=== PATIENT | male | born 1955 | race Caucasian/White ===

== ENCOUNTER → 2020-03-21 15:50 | Outpatient (CLI) | payer OTHER, SELFPAY ==
[2020-03-21 23:29] LABS: SARS-CoV-2 RNA PCR Negative
== END ==
PROVIDERS: PCP Family Medicine; Visit Provider Internal Medicine Nephrology
DX: Z01.812 Encounter for preprocedural laboratory examination (principal); Z20.822 Contact with and (suspected) exposure to COVID-19
CPT/HCPCS: C9803; U0003

== ENCOUNTER 2020-03-24 08:51 | Outpatient (CLI) | payer OTHER, SELFPAY ==
[2020-03-21 14:26] VITALS: BMI 22.6
[2020-03-24] VITALS (10 sets, daily range): BP systolic 119–149; BP diastolic 71–101; PULSE 53–77; RESP 16–20; O2SAT 92–100
--- NOTE | ~2020-03-24 | US_ITS ---
EXAMINATION: US bx renal DATE: 03/24/2020 11:34 INDICATION: Hematuria. Kidney disease stage IV. TECHNIQUE: The procedure including the risks, benefits, and alternatives was discussed with the patie nt. Risks discussed included bleeding and infection. The patient understood the risks and agreed to p roceed. A timeout was performed to verify the patient's name, date of , and procedure to be p erformed. The skin overlying the left kidney was prepped and draped in usual sterile fashion. Anest hetic was administered with 1% lidocaine subcutaneously. An 18 gauge core biopsy needle was then use d to obtain 3 core biopsy specimens under continuous sonographic guidance. The entry site was cleaned and dressed. There were no immediate complications. FINDINGS: Ultrasound images demonstrate the needle in the kidney. IMPRESSION: 1. Ultrasound-guided random left kidney core needle biopsy. Reviewed, dictated and finalized at location A. RE PHOTOGRAPHER
[2020-03-24 10:24] LABS: Mean Platelet Volume 9.5 fl (7.4-10.4); Platelet Count Result 286 k/mm3 (150-375)
[2020-03-24 10:31] LABS: INR 0.9; Prothrombin Time 12.4 Seconds (11.1-14.7)
== END 2020-03-24 15:34 | disposition home or self-care (01) ==
PROVIDERS: Radiology Diagnostic Radiology; PCP Family Medicine; Visit Provider Internal Medicine Nephrology
DX: R31.9 Hematuria, unspecified (principal); N18.4 Chronic kidney disease, stage 4 (severe)
CPT/HCPCS: 36415; 50200; 85049; 85610; 88300; 88305; 88313; 88329; 88346; 88348; 88350

== ENCOUNTER 2020-04-24 14:58 | Outpatient (CLI) | payer OTHER, SELFPAY ==
--- NOTE | ~2020-04-24 | US_ITS ---
EXAMINATION: US right upper quadrant DATE: 04/24/2020 15:20 INDICATION: Right upper quadrant pain TECHNIQUE: Multiple grayscale and Doppler ultrasound images of the abdomen were obtained. COMPARISON: None available FINDINGS: The head and body of the pancreas are normal. The pancreatic tail is obscured by bowel gas. The liver is normal with normal echogenicity and echotexture. No surface nodularity. Normal hepatope sulma flow in the main portal vein. The gallbladder is normal with no abnormal wall thickening, pericho lecystic fluid or stones. The normal common bile duct measures 2 mm. There was no sonographic Garcia sign. IMPRESSION: 1. Normal sonographic study of the gallbladder. Reviewed, dictated and finalized at location A. [employer]
== END 2020-04-24 14:59 | disposition home or self-care (01) ==
PROVIDERS: PCP Family Medicine; Visit Provider Family Medicine
DX: R10.11 Right upper quadrant pain (principal)
CPT/HCPCS: 76705

== ENCOUNTER 2020-09-27 08:50 | Inpatient (IN) | payer OTHER, SELFPAY ==
[2020-09-27] VITALS (41 sets, daily range): BP systolic 139–189; BP diastolic 61–128; PULSE 62–89; RESP 14–28; TEMP 36.4–37; O2SAT 77–100; BMI 22.0
--- NOTE | ~2020-09-27 | US_ITS ---
EXAMINATION: US venous doppler [facility] DATE: 09/30/2020 13:12 INDICATION: Upper showed a swelling TECHNIQUE: Grayscale ultrasound images without and with compression and Doppler ultrasound images of the bilateral upper extremity veins were obtained. COMPARISON: None. FINDINGS: The right internal jugular vein, subclavian vein, axillary vein, brachial veins, basilic vein, cephal ic vein, radial vein, and ulnar vein are patent. A right upper extremity PICC is noted. The left internal jugular vein, subclavian vein, axillary vein, brachial veins, basilic vein, cephali c vein, radial vein, and ulnar vein are patent. IMPRESSION: 1. No evidence of deep venous thrombosis. Reviewed, dictated and finalized at location B.
--- NOTE | ~2020-09-27 | CT_ITS ---
EXAMINATION: CTA chest PE protocol EXAM DATE: 10/01/2020 18:14 INDICATION: Shortness of breath. Intermediate probability pulmonary embolism. Dialysis, receiving imm ediately after pulmonary scan. TECHNIQUE: Spiral CTA of the chest (pulmonary arteries) was performed with 100 cc Omnipaque 350 intr avenous contrast injection. Images were acquired during the pulmonary arterial phase. Coronal maxi mum intensity projection 3D-reconstructions were created by the technologist on dedicated workstation . Axial, coronal and sagittal reformatted images were reviewed. The dose-length product (DLP) for t his examination was 322.30 mGy-cm. The exposure was tailored according to patient size (auto mA exp osure control), and iterative reconstruction (ASIR) was used as additional dose reduction technique. There is no prior study for comparison. FINDINGS: Some right anterolateral neck subcutaneous gas, swelling from catheter placement. Catheter tip in expected position. Probably from the catheter placement. Pulmonary arteries are well opacified and without intraluminal filling defects. No thoracic aortic dissection. There is segmental right lower lobe, multi segmental left lower lobe atelectasis. Small bilateral pleural effusions, left gr eater than right. Small pericardial effusion. Tracheobronchial tree is patent. There is no mediast inal, hilar or axillary lymphadenopathy. There is no pneumothorax. Borderline cardiac enlargement . There is mild coronary arterial calcification, arterial sclerosis. Upper abdomen is unremarkable. There is moderate thoracic spondylosis without osteoblastic or osteolytic lesions identified. IMPRESSION: 1. Lower lobe atelectasis, multi segmental in the left and segmental in the right. 2. Small pleural effusions left greater than right. 3. Small pericardial effusion. Reviewed, dictated and finalized at location A. IMPRESSION: 1. Lower lobe atelectasis, multi segmental in the left and segmental in the ri ght. 2. Small pleural effusions left greater than right. 3. Small pericardial effusion.
--- NOTE | ~2020-09-27 | XR_ITS ---
EXAMINATION: XR chest PICC line INDICATION: PICC insertion TECHNIQUE: Portable AP chest at 1037 hours COMPARISON: 0931 hours FINDINGS: A right upper extremity PICC has been inserted which ends with its tip at the superior cavo atrial junction. The lungs are free of acute opacities. There is no pleural effusion or pneumothorax. The cardiomediastinal silhouette is normal. IMPRESSION: 1. Right upper extremity PICC ending at the superior cavoatrial junction. Reviewed, dictated and finalized at location A.
--- NOTE | ~2020-09-27 | NM_ITS ---
EXAMINATION: NM renal flow and function DATE: 09/30/2020 14:42 INDICATION: Acute renal injury TECHNIQUE: 7.3 mCi Tc-99m MAG3 was administered IV. The patient was scanned in the supine position. A posterior abdominal radionuclide angiogram was obtained. A subsequent time course of static images of the kidneys, ureters, and bladder was obtained. COMPARISON: CT abdomen and pelvis dated 09/27/2020 FINDINGS: The posterior abdominal radionuclide angiogram and sequential static images show normal position of t he kidneys with normal size and morphology of the right kidney. The left kidney appears small with a defect at the lower pole corresponding to the large renal cyst seen on the prior CT. Peak renal paren chymal activity was seen in the first minute of the angiographic phase images with the first passage of radiotracer with no additional radiotracer uptake and continually slowly decreasing renal activity curves throughout the remainder of the study. IMPRESSION: No evident renal uptake following the initial passage of activity through the kidneys consistent with severe bilateral nonspecific nephropathy. Reviewed, dictated and finalized at location A. IMPRESSION: No evident renal uptake following the initial passage of activity through the k idneys consistent with severe bilateral nonspecific nephropathy.
--- NOTE | ~2020-09-27 | CT_ITS ---
EXAMINATION: CT abdomen pelvis wo con DATE: 09/27/2020 11:26 INDICATION: Right flank pain TECHNIQUE: Computed tomography (CT) of the abdomen and pelvis was performed without intravenous contr ast. The dose-length product (DLP) was 162.34 mGy-cm. Automated exposure control and iterative recons truction technique were employed. COMPARISON: 02/02/2015 FINDINGS: There are small pleural effusions. Dependent atelectasis is noted in the visualized lung ba ses. The heart size is normal. The liver, spleen, pancreas, gallbladder, and adrenal glands are hernan l. There is a 5 cm cyst of the left kidney. The right kidney is unremarkable. No stones are identifie d in the kidneys, ureters, or bladder. There is no hydronephrosis or hydroureter. Calcified atheroscl erosis is noted. No pathologically enlarged abdominal or pelvic lymph nodes are identified. There is no free intraperitoneal gas or evidence of bowel obstruction. There is mild lumbar spondylosis. IMPRESSION: 1. No CT correlate for the patient's symptoms. Reviewed, dictated and finalized at location A.
--- NOTE | ~2020-09-27 | XR_ITS ---
EXAMINATION: XR fl guide central line place EXAM DATE: 10/01/2020 14:50 INDICATION: Insertion of tunneled dialysis catheter. TECHNIQUE: Fluoroscopy used during XR fl guide central line place performed by Dr. Kavin Weeks MD. Radiologist was not present for the imaging or procedure. Total fluoroscopic time of 102 second s. The DAP for this procedure was 0.3 mGym2. A total of 3 images sent to PACS from the exam. There is no prior study for comparison. FINDINGS: Frontal image demonstrates a right IJ approach double lumen dialysis catheter, tip project ing over expected location of the cavoatrial junction. There is also a right-sided PICC line. Correl ate with procedure note. IMPRESSION: Fluoroscopy used during right IJ dialysis catheter placement. Reviewed, dictated and finalized at location A.
--- NOTE | ~2020-09-27 | NM_ITS ---
EXAMINATION: NM pulmonary perfusion DATE: 09/29/2020 12:11 INDICATION: Shortness of breath. Elevated d-dimer. TECHNIQUE: 5.2 mCi Tc-99m MAA by intravenous route. Scintigraphic images of the chest were obtained. COMPARISON: Chest radiograph dated 09/28/2020 FINDINGS: Moderate sized perfusion defects in the anterior basilar segment of the left lower lobe and large per fusion defect in the posterior basilar segment of the left lower lobe. Small perfusion defect at the anterior segment of the right upper lobe. IMPRESSION: 1. Intermediate probability for pulmonary embolism. Reviewed, dictated and finalized at location A.
--- NOTE | ~2020-09-27 | XR_ITS ---
EXAMINATION: XR chest port-a-cath/central EXAM DATE: 10/01/2020 15:16 INDICATION: Postinsertion dialysis catheter. TECHNIQUE: Portable AP frontal chest x-ray was obtained. Comparison is made to prior examination from 09/29/2020. FINDINGS: There is a right-sided IJ double lumen dialysis catheter, tip projecting over cavoatrial ju nction. Also right-sided PICC line similar to position. The cardiomediastinal silhouette is prominent but magnified on this AP technique. Small amount of right perihilar airspace disease probably subseg mental atelectasis. No sizable pleural effusions. No pneumothorax. IMPRESSION: 1. Scattered right perihilar linear opacity likely subsegmental atelectasis. 2. No postprocedure pneumothorax. Reviewed, dictated and finalized at location A.
--- NOTE | ~2020-09-27 | US_ITS ---
EXAMINATION: US venous doppler [facility] DATE: 09/28/2020 08:52 INDICATION: Shortness of breath TECHNIQUE: [place] scale images without and with compression and Doppler images of the bilateral lower e xtremity veins were obtained. COMPARISON: None FINDINGS: The right common femoral vein, profunda femoral vein, femoral vein, popliteal vein, peroneal trunk, p osterior tibial veins, and greater saphenous vein are patent. The left common femoral vein, profunda femoral vein, femoral vein, popliteal vein, peroneal trunk, po sterior tibial veins, and greater saphenous vein are patent. IMPRESSION: 1. Patent bilateral lower extremity veins. No evidence of deep venous thrombosis. Reviewed, dictated and finalized at location A. IMPRESSION: 1. Patent bilateral lower extremity veins. No evidence of deep venous thrombosi s.
--- NOTE | ~2020-09-27 | XR_ITS ---
EXAMINATION: XR chest 2V DATE: 09/27/2020 09:34 INDICATION: Shortness of breath and cough TECHNIQUE: PA and lateral views of the chest are obtained. COMPARISON: None available FINDINGS: The lungs are free of acute opacities. There is no pleural effusion or pneumothorax. The ca rdiomediastinal silhouette is normal. There is moderate cervical and thoracic spondylosis. IMPRESSION: 1. No acute cardiopulmonary abnormality. Reviewed, dictated and finalized at location A.
--- NOTE | ~2020-09-27 | US_ITS ---
EXAMINATION: US renal BI DATE: 09/27/2020 14:32 INDICATION: Acute on chronic kidney injury TECHNIQUE: Multiple grayscale and Doppler ultrasound images of the kidneys were obtained. COMPARISON: CT from today FINDINGS: The right kidney measures 10.8 x 4.7 x 4.1 cm. The left kidney measures 11.7 x 5.1 x 5.7 cm . The kidneys demonstrate increased parenchymal echogenicity. There is a 4.5 cm cyst of the left kidn ey. There is no hydronephrosis. The bladder is normal. IMPRESSION: 1. Medical renal disease. Reviewed, dictated and finalized at location A. IMPRESSION: 1. Medical renal disease.
--- NOTE | ~2020-09-27 | XR_ITS ---
XR chest 2V DATE: 09/29/2020 12:17 INDICATION: Elevated d-dimer TECHNIQUE: PA and lateral views COMPARISON: 01/29/2021 portable AP chest FINDINGS: Right upper extremity PIC catheter tip overlies the superior vena cava. Minimal blunting of the costophrenic angles suggests small pleural effusions. There is mild infiltrate or atelectasis in the lower lung zones. Heart size is normal. There is aortic arch calcification. No hilar enlargement. IMPRESSION: Mild bilateral lower lung infiltrate or atelectasis Small pleural effusions may be present Right upper extremity PIC catheter Reviewed, dictated and finalized at location A.
--- NOTE | 2020-09-27 09:09 | ECG_ITS ---
Measurements Intervals [place] Rate: 72 P: 72 MI: 191 QRS: 81 QRSD: 86 T: 81 QT: 413 QTc: 455 Interpretive Statements SINUS RHYTHM LEFT VENTRICULAR HYPERTROPHY AND ST-T CHANGE BORDERLINE T WAVE ABNORMALITY- HIGH LATERAL LEADS BASELINE WANDER- I, II, III, AVL, AVF, V2-V6 BORDERLINE ECG Electronically Signed On 09-27-2020 12:00:49 CDT by Eddie Robertson D.O.
--- NOTE | 2020-09-27 09:52 | ED.GENADULT ---
HPI - General Adult General Chief complaint: Shortness of Breath/Dyspnea Stated complaint: SOB, N/V Time Seen by Provider: 09/27/20 08:56 Source: patient, RN notes reviewed and old records reviewed Mode of arrival: ambulatory Limitations: no limitations History of Present Illness HPI narrative: This is a 64 year old male who presents for evaluation of right flank pain. Patient states he has been dealing with right flank pain for over 1 year. He states he was here 1 year ago , and there was no etiology for his pain. His pain resolved but it returned a few weeks ago. HE states his pain has been constant and it is worsening. He is having such severe pain he is having difficulty taking a breath and he is short of breath due to his pain. He reports frequent urinary but he denies dysuria or hematuria. He has not taken anything for pain. He also has right lower back pain. He reports, nausea, vomiting and increased urinary frequency. He denies history DVT, PE , leg swelling or calf pain. Related Data Home Medications Medication Instructions Recorded Confirmed amlodipine 09/27/20 Allergies Allergy/AdvReac Type Severity Reaction Status Date / Time No Known Allergies Allergy Verified 09/27/20 08:55 Review of Systems Review of Systems: All systems reviewed & are unremarkable except as noted in HPI and below Constitutional: Constitutional: Denies chills and Denies fever(s) Cardiovascular: Cardiovascular: Denies chest pain Respiratory: Respiratory: Denies cough and Reports dyspnea Gastrointestinal: Gastrointestinal: Reports abdominal pain, Denies diarrhea, Reports nausea and Reports vomiting Genitourinary: Genitourinary: Denies hematuria, Denies dysuria and Reports urinary frequency (increase) Musculoskeletal: Musculoskeletal: Reports back pain [facility] Past Medical History Medical History CKD (chronic kidney disease) stage 4, GFR 15-29 ml/min Kidney failure 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 Restless leg syndrome Rheumatoid arthritis Tobacco abuse Surgical History Surgical History H/O right wrist surgery (~1979) History of carpal tunnel release (Unknown) Family History Family History Sibling Family history of mental disorder Father Cerebrovascular accident Other Family history of kidney disease Social History Social History Smoking status: Current every day smoker Tobacco type: cigarettes Second hand tobacco smoke exposure: No Smoking end date: 03/14/13 Alcohol intake: former Substance use: never Substance use type: does not use Gender identity (if verbalized by the patient): Male Spiritual care concerns: No Exam Const: General: alert Nutritional Appearance: thin Orientation/consciousness: patient oriented x3 Eyes: EOM: EOMs intact bilaterally Resp: Effort & Inspection: normal respiratory effort and no retractions Auscultation: clear to auscultation bilaterally Cardio: Rate: regular rate Rhythm: regular rhythm Heart sounds: no murmurs GI: GI Palp: Yes Soft to palpation, Yes Tenderness to palpation present (GI) (Right mid, RUQ), Yes Guarding due to palpation present (GI) and No Rigid due to palpation Auscultation: normal bowel sounds : General: Yes no CVA tenderness Skin: General skin exam: normal color Rashes: no rashes Neuro: General: patient oriented x3 and moves all extremities Course Reevaluation(s) Reevaluation #1: Patient reports with right flank pain that appears be due to his kidneys. 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 Labs show worsening kidney failure which is likely cause of his anemia. HE denies melena or bleeding, and he is guaic ne
[2020-09-27] MEDS: HYDROmorphone HCL INJ (*CRX) 1 MG/ML SYR IV PUSH (10:15)
[2020-09-27] MEDS: ONDANSETRON INJ 4 MG/2 ML VIAL IV PUSH ×2 (10:15→14:13)
--- NOTE | 2020-09-27 10:20 | PC.NURSE ---
Attempted IV access several times by several different nurses. US used per Greg for IV but infiltrated after IVP medication. Patient refusing anymore blood draws or IV sticks at this time. Dr. Hayden notified.
[2020-09-27 10:23] LABS: Basophils Percent Auto 0.6 % (0.2-1.2); Eosinophils Absolute Auto 1.1 K/mm3 (0-0.3); Eosinophils Percent Auto 16.4 % (0-4.4); Hematocrit 21.3 % (42.0-52.0); Immature Granulocyte Absolute 0.02 K/mm3 (0.00-0.031); Immature Granulocyte Percent A 0.3 % (0-0.5); Lymphocytes Absolute Auto 1.27 K/mm3 (0.9-3.2); Lymphocytes Percent Auto 18.6 % (18.3-44.2); Mean Corpuscular HGB Conc 31.9 g/dl (32-36); Mean Corpuscular Hemoglobin 29.2 pg (26-34); Mean Corpuscular Volume 91.4 fl (80-100); Mean Platelet Volume 9.6 fl (7.4-10.4); Monocytes Absolute Auto 0.5 K/mm3 (0.1-0.6); Monocytes Percent Auto 6.6 % (2.6-8.5); Neutrophils Absolute Auto 3.9 K/mm3 (1.3-6.7); Neutrophils Percent Auto 57.5 % (45.5-73.1); Platelet Count Result 210 k/mm3 (150-375); Red Blood Count 2.33 M/mm3 (4.6-6.20); Red Cell Distribution Width 13.2 % (11.5-14.5); White Blood Count 6.8 K/mm3 (4.5-10.0)
[2020-09-27 10:25] LABS: Hemoglobin 6.8 g/dL (14.0-18.0)
[2020-09-27 10:28] LABS: Add Urine Microscopic? YES; Appearance Urine Clear (Clear); Bacteria Urine Trace /hpf; Bilirubin Urine Negative (Negative); Blood Urine 3+ (Negative); Color Urine Yellow (Yellow); Glucose Urine UA 1+ mg/dL (Negative); Ketones Urine Negative (Negative); Leukocyte Esterase Ur Negative LEU/UL (Negative); Mucus Urine Rare /lpf; Nitrate Urine Negative (Negative); Protein Urine 3+ mg/dL (Negative); RBC Urine >75 /hpf (0-2); Squamous Epithelial Cell Urine Rare /hpf (Few); Urobilinogen Urine Negative mg/dL (<2.0)
[2020-09-27 10:36] LABS: Alanine Aminotransferase 10 U/L (4-50); Albumin Level 3.4 g/dL (3.5-5.1); Alkaline Phosphatase 71 U/L (38-126); Anion Gap 14 mmol/L (8-16); Aspartate Amino Transferase 17 U/L (17-59); Bilirubin,Total 0.3 mg/dL (0.2-1.3); Blood Urea Nitrogen 93 mg/dL (9-20); Calcium 6.9 mg/dL (8.4-10.2); Carbon Dioxide 18 mmol/L (22-30); Chloride 108 mmol/L (98-107); Estimated CRCL calculation 4 ml/min; Estimated Glomerular Filt Rate 3; Glucose 93 mg/dL (65-110); Lipase 95 U/L (23-300); Potassium 4.4 mmol/L (3.4-5.0); Sodium 140 mmol/L (137-145)
--- NOTE | 2020-09-27 11:04 | PC.NURSE ---
Iv from us insertion discontinued due to infiltration to r upper arm .
[2020-09-27 12:00] LABS: D Dimer 18.22 ug/mL (<0.48)
[2020-09-27 12:32] LABS: Iron 29 ug/dL (49-181)
[2020-09-27 12:39] LABS: INR 0.9; Partial Thromboplastin Time 49.6 SECONDS (22.3-36.8); Prothrombin Time 12.8 Seconds (11.1-14.7)
[2020-09-27 12:42] LABS: Percent Iron Saturation 9 % (20-50)
[2020-09-27 13:40] LABS: Folic Acid 7.5 ng/mL (2.76->20)
[2020-09-27] MEDS: PANTOPRAZOLE SODIUM IV 40 MG VIAL IV PUSH (14:13)
[2020-09-27] MEDS: TUBING, BLOOD SET 1 EACH XX (14:18)
[2020-09-27] MEDS: SODIUM CHLORIDE 0.9% IV 250 ML 30 ML IV CONT (14:19)
--- NOTE | 2020-09-27 14:34 | PC.NURSE ---
blood consent signed.
--- NOTE | 2020-09-27 14:53 | PM.CNNEP ---
Assessment and Plan Assessment and plan (1) MADDY (acute kidney injury): Code(s): N17.9 - Acute kidney failure, unspecified Status: Acute Assessment and Plan: acute insult or progression of disease? seems a bit rapid for disease progress but still is possible did his anemia cause this (of did MADDY worsen his anemia?) given his admission labs, concern is that he may need [employer]PER[employer]READ/dialysis if no improvement questionable uremic symptons... 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?) and likely HTN (3) Anemia: Code(s): D64.9 - Anemia, unspecified Status: Acute Assessment and Plan: no evidence of GI bleed (guaiac negative in ER) suspect related to worsening kidney disease (?) check iron studies empirically dose with Epogen follow trend of H/H (4) Hypertension: Qualifiers: Hypertension type: essential hypertension Qualified Code(s): I10 - Essential (primary) hypertension Code(s): I10 - Essential (primary) hypertension Status: Chronic Assessment and Plan: moderately elevated at this time follow trend of hemodynamics (5) Right upper quadrant pain: Code(s): R10.11 - Right upper quadrant pain Status: Chronic Assessment and Plan: chronic issue for the last year or so no explanation by imaging to date supportive therapy Long and extensive discussion (> 20 minutes) regarding his somewhat severe MADDY/ARF on his baseline CKD and my concern that he may require [employer]PER[employer] THREAD/dialysis should his kidney function fail to improve or worsen or if he has issues with hyperkalemia, refractory acidosis, volume overload, or uremia. Will continue to follow. History of Present Illness Reason for Consult Consult date: 09/27/20 Reason for consult: acute renal failure (on chronic kidney disease) Chief Complaint Chief complaint: acute chronic renal failure, anemia History of Present Illness Narrative: The patient is a 64-year-old male with a past medical history as outlined below who presented to [facility] Emergency room with complaints of abdominal pain. The patient has had on/off issues with right-sided abdominal pain for last 1-2 years without a clear-cut etiology he has had numerous imaging studies done in the past without any evidence of liver problems, gallbladder disease, bowel issues or appendicitis. However, the pain in his right abdomen was somewhat worse than usual and was severe enough that it brought him to the emergency room for further evaluation. Workup and evaluation in the emergency room demonstrated the patient to be quite hypertensive presumably secondary to pain issues but in otherwise no acute distress. He did have significant discomfort and pain in the right quadrant of his abdomen. Routine blood test demonstrated significant anemia in conjunction with a marked decline in his kidney function from baseline. A CT scan of the abdomen and pelvis did not demonstrate any intra-abdominal pathology to explain his pain or the aforementioned laboratory abnormalities. Given his severe anemia and his acute kidney injury on top of his baseline kidney disease, he was admitted the hospital for packed red blood cell transfusion and further evaluation and therapy. Renal consultation was requested due to his acute kidney injury on chronic kidney disease. The patient has fairly advanced kidney disease at baseline and follows with Dr. Palmer in clinic for management of this issue/problem. 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 Given his advanced chr
[2020-09-27 15:07] LABS: Creatinine Urine 56.7 mg/dL
[2020-09-27 15:08] LABS: Creatinine Urine 56.1 mg/dL
[2020-09-27 15:19] LABS: Sodium Urine Random 86 meq/L
[2020-09-27 15:21] LABS: Total Protein Urine Random 576 mg/dL; Ur Ttl Prot Creatinine Ratio 10.16 mg/mg (0-0.20)
[2020-09-27] MEDS: CALCIUM GLUCONATE 1,000 MG/10 ML VIAL 1000 MG IV PUSH (15:55)
[2020-09-27 15:59] LABS: Eosinophil Urine 6 % (None Seen)
[2020-09-27] MEDS: SODIUM CHLORIDE 0.9% IV 1,000 ML 125 ML IV CONT (18:30)
--- NOTE | 2020-09-27 18:49 | PM.IMHP ---
H&P: HPI History of Present Illness Date/Time: 09/27/20 18:49Thidamir is a 64-year-old male patient who presented today with complaints of right flank pain. The patient has had this flank pain for over 1 year. He has a history of having RA as well as lupus. 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 The patient stated he was going to go for an colonoscopy approximately [address] Christine however the patient was not able to complete the test because he was vomiting. Patient was not sure of any recent GI bleed. The patient complains of this right upper quadrant pain that he states is getting worse. He does not take any pain medications at home. Coughing and moving and taking deep breaths makes the pain worse. CT of the abdomen pelvis was read as no CT correlate for the patient's symptoms. Renal ultrasound from today shows medical renal disease. H&H 6.8 and 21.3 platelets are normal. The patient has blood in his stool which is of chronic constant condition. Protein creatinine ratio is 10.16. Nephrology has been consulted and has already seen the patient. BUN is 93 and creatinine is 14.8 with a GFR of 3. D-dimer is listed as 18.22. Hemoglobin today was 6.8. We were unable to do a V/Q scan today and or not able to do a CT scan pulmonary artery due to his kidneys. Patient was started on Protonix IV push, Dilaudid, Zofran, and calcium gluconate. The patient was given 2 units of packed red blood cells. The patient is being admitted to inpatient services on the date of service of 09/27/2020. Chief Complaint: Right upper quadrant pain Review of Systems Review of Systems: All systems reviewed & are unremarkable except as noted in HPI and below Constitutional: Constitutional: Reports as per HPI and Reports no additional constitutional complaints Eyes: Eyes: Reports as per HPI and Reports no additional eye complaints ENT: Reports system reviewed and no additional complaints, except as documented and Reports Normal hearing present Cardiovascular: Cardiovascular: Reports no additional cardiovascular complaints Respiratory: Respiratory: Reports no additional respiratory complaints and Reports no additional respiratory complaints Gastrointestinal: Gastrointestinal: Reports as per HPI and Reports no additional gastrointestinal complaints Musculoskeletal: Musculoskeletal: Reports no additional musculoskeletal complaints Integumentary/Breasts: Skin/Breast: Reports system reviewed and no additional complaints, except as docu and Reports as per HPI Neurologic: Reports system reviewed and no additional complaints, except as documented, Reports as per HPI and Reports Normal hearing present Psychiatric: Psychiatric: Reports no additional psychiatric complaints and Reports as per HPI Endocrine: Endocrine: Reports no additional endocrine complaints Hematologic/Lymphatic: Hematologic/Lymphatic: Reports no additional hematologic/lymphatic complaints Allergic/Immunologic: Allergic/Immunologic: Reports no additional allergic/immunologic complaints [facility] Past Medical History Medical History (Updated 09/27/20 @ 19:22 by Lavern Hodges NP) CKD (chronic kidney disease) stage 4, GFR 15-29 ml/min Hypertension Kidney failure Lupus Restless leg syndrome Rheumatoid arthritis Tobacco abuse Surgical History Surgical History (Updated 09/27/20 @ 19:23 by Lavern Hodges NP) H/O right wrist surgery (~1979) History of carpal tunnel release (Unknown) History of facial surgery Hx of cataract extraction Family History Family History (Updated 09/27/20 @ 18:36 by Dominique Palacios RN) Sibling Family history of mental disorder spinal meningitis, brain injury Father Cerebrovascular accident Other Family history of kidney disease Social History Social History (Updated 09/27
[2020-09-27] MEDS: MORPHINE SULFATE (*CRX) 4 MG/ML INJ IV PUSH (18:55)
[2020-09-27] MEDS: HYDROcodone/acetaminophen (*CRX) 5-325 MG TABLET 1 TAB PO (20:32)
--- NOTE | 2020-09-28 00:47 | PC.NURSE ---
Pt continues to refuse labs to be drawn. Spoke with Jacquie Olivier Nursing car supervisor she was going to try and draw his labs and he refused. He said, I've been poked so much and cant handle it right now. I explained to him why it is important to draw his labs and he voiced understanding and continues to refuse for us to draw his labs.
[2020-09-28] MEDS: SODIUM CHLORIDE 0.9% IV 1,000 ML 125 ML IV CONT (02:47)
[2020-09-28] MEDS: HYDROcodone/acetaminophen (*CRX) 5-325 MG TABLET 1 TAB PO ×3 (04:08→23:16)
[2020-09-28 06:00] VITALS: BP 158/86; PULSE 68; RESP 16; TEMP 36.3; O2SAT 97
--- NOTE | 2020-09-28 07:49 | PM.IMPN ---
Progress Note: A&P Assessment and Plan (1) Anemia: Code(s): D64.9 - Anemia, unspecified Status: Acute Assessment and Plan: Check H&H every 6 hours. Gastroenterology service has been consulted. He was supposed to have colonoscopy as an outpatient but could not continue his breath is he felt nauseated. Will check stool for occult blood. Anemia workup has been sent. Iron level is low which is 29. TIBC is 320. Hematology service has been consulted as well. Hemoglobin today is 7.4 which is up from 6.8 yesterday after 1 unit of PRBC. (2) Elevated d-dimer: Code(s): R79.89 - Other specified abnormal findings of blood chemistry Status: Acute Assessment and Plan: Not able to do a CTA chest due to patient's renal disease. V/Q scan has been ordered. Doppler ultrasound has been found to be negative for DVT. Low- suspicions for thromboembolic disease. (3) Hypertension: Qualifiers: Hypertension type: essential hypertension Qualified Code(s): I10 - Essential (primary) hypertension Code(s): I10 - Essential (primary) hypertension Status: Chronic Assessment and Plan: Continue with home medications With amlodipine. (4) Lupus: Code(s): M32.9 - Systemic lupus erythematosus, unspecified Status: Chronic Assessment and Plan: He was supposed to see rheumatology as an outpatient. (5) Right upper quadrant pain: Code(s): R10.11 - Right upper quadrant pain Status: Acute Assessment and Plan: Patient has had a workup in the past. He had a CT scan without contrast today and there was no CT correlation for the patient's symptoms. I did order the patient Vicodin as well as Flexeril. The patient has discomfort with movement or deep breath. V/Q scan is pending. deescalate pain medication from IV to p.o.. (6) Tobacco abuse: Code(s): Z72.0 - Tobacco use Status: Acute Assessment and Plan: patient stated that he is starting to cut down his cigarettes every day and is down to just a couple cigarettes a day. We have discussed smoking cessation for approximately 5 minutes. (7) CKD (chronic kidney disease) stage 4, GFR 15-29 ml/min: Code(s): N18.4 - Chronic kidney disease, stage 4 (severe) Status: Acute Assessment and Plan: The patient has been in stage IV however his GFR is only 3 today. Patient does have kidney disease and nephrology is seeing the patient As an outpatient. 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 His creatinine is 14.8. Stop IV fluids. Creatinine is 12.8 today. BUN is 91 which is improved from yesterday. Is mildly acidotic with bicarb of 15 but also having hyperchloremia. Calcium is 6.8. Potassium is 5.3. Will give Kayexalate. Repeat labs in the a.m.. Subjective Date/time seen: 09/28/20 07:49 He is feeling better. Denied have any significant weakness and tiredness. Denied have any chest pain or shortness of breath. He denied have any melena or bright red blood per rectum. Denied have any bleeding from anywhere else. He has received 1 unit of PRBC yesterday. Labs could not be obtained. He has a difficult stick and does not have reliable IV access as well. Midline will be placed today. Still complaining of right upper quadrant pain but that gets worse only when he moves his upper torso the body. Review of Systems Review of Systems: All systems reviewed & are unremarkable except as noted in HPI and below Exam Const: General: cooperative, comfortable, no acute distress, alert and awake Neck: Neck: supple Resp: Effort & Inspection: normal respiratory effort Auscultation: clear to auscultation bilaterally Cardio: Rate: regular rate Rhythm: regular rhythm Heart sounds: S1 normal heart sound present and S2 normal heart sound present Neuro: General: oriented to person, or
[2020-09-28 08:34] LABS: Alanine Aminotransferase 8 U/L (4-50); Alkaline Phosphatase 49 U/L (38-126); Anion Gap 13 mmol/L (8-16); Aspartate Amino Transferase 16 U/L (17-59); Bilirubin,Total 0.5 mg/dL (0.2-1.3); Blood Urea Nitrogen 91 mg/dL (9-20); Calcium 6.8 mg/dL (8.4-10.2); Carbon Dioxide 15 mmol/L (22-30); Chloride 112 mmol/L (98-107); Estimated CRCL calculation 5 ml/min; Estimated Glomerular Filt Rate 4; Glucose 76 mg/dL (65-110); Magnesium 1.7 mg/dL (1.6-2.3); Potassium 5.3 mmol/L (3.4-5.0); Sodium 140 mmol/L (137-145)
[2020-09-28 09:10] LABS: Lactate Dehydrogenase 946 U/L (313-618); Transferrin 201 mg/dL (206-381)
[2020-09-28] MEDS: ONDANSETRON INJ 4 MG/2 ML VIAL IV PUSH (11:12)
[2020-09-28 12:01] LABS: Basophils Percent Auto 0.7 % (0.2-1.2); Eosinophils Absolute Auto 0.9 K/mm3 (0-0.3); Eosinophils Percent Auto 15.5 % (0-4.4); Hematocrit 22.3 % (42.0-52.0); Hemoglobin 7.4 g/dL (14.0-18.0); Immature Granulocyte Absolute 0.02 K/mm3 (0.00-0.031); Immature Granulocyte Percent A 0.3 % (0-0.5); Immature Reticulocyte Fraction 8.2 % (3.0-15.9); Lymphocytes Absolute Auto 1.36 K/mm3 (0.9-3.2); Lymphocytes Percent Auto 23.4 % (18.3-44.2); Mean Corpuscular HGB Conc 33.2 g/dl (32-36); Mean Corpuscular Hemoglobin 30.3 pg (26-34); Mean Corpuscular Volume 91.4 fl (80-100); Mean Platelet Volume 9.5 fl (7.4-10.4); Monocytes Absolute Auto 0.4 K/mm3 (0.1-0.6); Monocytes Percent Auto 6.2 % (2.6-8.5); Neutrophils Absolute Auto 3.1 K/mm3 (1.3-6.7); Neutrophils Percent Auto 53.9 % (45.5-73.1); Platelet Count Result 182 k/mm3 (150-375); Red Blood Count 2.44 M/mm3 (4.6-6.20); Red Cell Distribution Width 13.2 % (11.5-14.5); Reticulocyte Hemoglobin Conten 35.1 pg (28.2-35.7); Reticulocyte Percent 1.22 % (0.7-4.3); Reticulocytes Absolute 0.03 B/L (32.2-175.7); White Blood Count 5.8 K/mm3 (4.5-10.0)
[2020-09-28 12:11] LABS: Lactic Acid Reflex < 0.5 mmol/L (0.7-2.1)
[2020-09-28 12:42] LABS: Iron 56 ug/dL (49-181)
[2020-09-28 12:51] LABS: Percent Iron Saturation 25 % (20-50)
[2020-09-28 14:00] VITALS: BP 167/86; PULSE 65; RESP 16; TEMP 36.4; O2SAT 98
--- NOTE | 2020-09-28 14:06 | P.PNNP_ITS ---
Progress Note: A&P Assessment and Plan (1) MADDY (acute kidney injury): Code(s): N17.9 - Acute kidney failure, unspecified Status: Acute Assessment and Plan: * acute insult or progression of disease? 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 * trial of bicarb fluids today (2) Chronic kidney disease, stage IV (severe): Code(s): N18.4 - Chronic kidney disease, stage 4 (severe) Status: Chronic Assessment and Plan: * baseline creatinine around 3.2 - 3.6mg/dl * due to biopsy proven sclerosing glomerulopathy (from lupus nephritis?) and likely HTN (3) Anemia: Code(s): D64.9 - Anemia, unspecified Status: Acute Assessment and Plan: * no evidence of GI bleed (guaiac negative in ER) * suspect related to worsening kidney disease (?) * iron studies with adequate iron stores * empirically dose with Epogen * follow trend of H/H (4) Hypertension: Qualifiers: Hypertension type: essential hypertension Qualified Code(s): I10 - Essential (primary) hypertension Code(s): I10 - Essential (primary) hypertension Status: Chronic Assessment and Plan: * moderately elevated at this time * pain possibly playing a role? * follow trend of hemodynamics (5) Right upper quadrant pain: Code(s): R10.11 - Right upper quadrant pain Status: Chronic Assessment and Plan: * chronic issue for the last year or so * no explanation by imaging to date * supportive therapy Will continue to follow. Subjective Date/time seen: 09/28/20 14:06 States he feels okay but still has the right sided abdomen pain that originally brought him to the ER; no other acute issues or complaints voiced; no events overnight or earlier this AM. Exam Narrative: Exam Narrative: General: WD/WN male in NAD Heart: normal S1 and S2; no rub Lungs: clear to auscultation Abdomen: soft, nontender, nondistended, positive bowel sounds Extremities: no cyanosis or clubbing; no edema Skin: warm and dry Objective Data Vital Signs Vital Signs: Vital Signs Temp Pulse Resp BP Pulse Ox 09/28/20 14:00 36.4 C L 65 16 167/86 H 98 09/28/20 06:00 36.3 C L 68 16 158/86 H 97 09/27/20 22:00 36.5 C 74 18 162/69 H 98 Intake/Output Intake/Output: Intake & Output 09/25/20 09/26/20 09/27/20 09/28/20 23:59 23:59 23:59 23:59 Intake Total 599 2370 Balance 599 2370 Meds/Results Medications: Active Medications Generic Name Dose Route Start Last Admin Trade Name Freq PRN Reason Stop Dose Admin Hydrocodone Bitart/Acetaminophen 1 tab 09/28/20 08:37 09/28/20 16:39 Hydrocodone/Acetaminophen (*Crx) 5-325 Mg Tablet PO 1 tab Q6H PRN Administration Pain Rated 4-6 Amlodipine Besylate 10 mg 09/29/20 09:00 Amlodipine Besylate 5 Mg Tablet PO DAILY CANDIDA Cyclobenzaprine HCl 5 mg 09/27/20 18:40 Cyclobenzaprine Hcl 5 Mg Tablet PO Q8H PRN Muscle Spasm Sodi
--- NOTE | 2020-09-28 14:06 | PM.PNNEP ---
Progress Note: A&P Assessment and Plan (1) MADDY (acute kidney injury): Code(s): N17.9 - Acute kidney failure, unspecified Status: Acute Assessment and Plan: acute insult or progression of disease? 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 follow trend of hemodynamics (5) Right upper quadrant pain: Code(s): R10.11 - Right upper quadrant pain Status: Chronic Assessment and Plan: chronic issue for the last year or so no explanation by imaging to date supportive therapy Will continue to follow. Subjective Date/time seen: 09/28/20 14:06 States he feels okay but still has the right sided abdomen pain that originally brought him to the ER; no other acute issues or complaints voiced; no events overnight or earlier this AM. Exam Narrative: Exam Narrative: General: WD/WN male in NAD Heart: normal S1 and S2; no rub Lungs: clear to auscultation Abdomen: soft, nontender, nondistended, positive bowel sounds Extremities: no cyanosis or clubbing; no edema Skin: warm and dry Objective Data Vital Signs Vital Signs: Vital Signs Temp Pulse Resp BP Pulse Ox 09/28/20 14:00 36.4 C L 65 16 167/86 H 98 09/28/20 06:00 36.3 C L 68 16 158/86 H 97 09/27/20 22:00 36.5 C 74 18 162/69 H 98 Intake/Output Intake/Output: Intake & Output 09/25/20 09/26/20 09/27/20 09/28/20 23:59 23:59 23:59 23:59 Intake Total 599 2370 Balance 599 2370 Meds/Results Medications: Active Medications Generic Name Dose Route Start Last Admin Trade Name Freq PRN Reason Stop Dose Admin Hydrocodone Bitart/Acetaminophen 1 tab 09/28/20 08:37 09/28/20 16:39 Hydrocodone/Acetaminophen (*Crx) 5-325 Mg Tablet PO 1 tab Q6H PRN Administration Pain Rated 4-6 Amlodipine Besylate 10 mg 09/29/20 09:00 Amlodipine Besylate 5 Mg Tablet PO DAILY CANDIDA Cyclobenzaprine HCl 5 mg 09/27/20 18:40 Cyclobenzaprine Hcl 5 Mg Tablet PO Q8H PRN Muscle Spasm Sodium Bicarbonate 75 meq/ 1,075 mls @ 50 mls/hr 09/28/20 15:40 09/28/20 16:40 Sodium Chloride IV CONT 09/29/20 11:39 50 mls/hr .[id number] CANDIDA Administration Morphine Sulfate 2 mg 09/28/20 08:38 Morphine Sulfate (*Crx) 4 Mg/Ml Inj IV PUSH Q4H PRN Pain Rated 7-10 Ondansetron HCl 4 mg 09/27/20 13:42 09/28/20 11:12 Ondansetron Inj 4 Mg/2 Ml Vial IV PUSH 4 mg Q4H PRN Administration Nausea Radiology Results: ITS Impressions Abdomen/Pelvis CT 09/27/20 12:45 IMPRESSION: 1. No CT correlate for the patient's symptoms. Renal Ultrasound 09/27/20 15:19 IMPRESSION: 1. Medical renal disease. Venous Doppler Study 09/28/20 09:47 IMPRESSION: 1. Patent
[2020-09-28] MEDS: SODIUM POLYSTYRENE SULFONONATE 15 GM/60 ML BTL PO (14:51)
[2020-09-28] MEDS: SODIUM BICARBONATE 8.4% 75 MEQ in SODIUM CHLORIDE 0.45% 1,000 ML 50 MEQ IV CONT (16:40)
[2020-09-28] MEDS: CYCLOBENZAPRINE HCL 5 MG TABLET PO (21:40)
[2020-09-28 22:00] VITALS: BP 165/76; PULSE 73; RESP 16; TEMP 36.6; O2SAT 97
[2020-09-29 05:56] LABS: Basophils Percent Auto 0.5 % (0.2-1.2); Eosinophils Absolute Auto 0.8 K/mm3 (0-0.3); Immature Granulocyte Absolute 0.01 K/mm3 (0.00-0.031); Immature Granulocyte Percent A 0.2 % (0-0.5); Lymphocytes Absolute Auto 1.71 K/mm3 (0.9-3.2); Lymphocytes Percent Auto 28.5 % (18.3-44.2); Mean Corpuscular HGB Conc 33.3 g/dl (32-36); Mean Corpuscular Hemoglobin 29.9 pg (26-34); Mean Corpuscular Volume 89.7 fl (80-100); Mean Platelet Volume 9.3 fl (7.4-10.4); Monocytes Absolute Auto 0.4 K/mm3 (0.1-0.6); Monocytes Percent Auto 6.5 % (2.6-8.5); Neutrophils Percent Auto 50.3 % (45.5-73.1); Platelet Count Result 183 k/mm3 (150-375); Red Blood Count 2.34 M/mm3 (4.6-6.20); Red Cell Distribution Width 13.2 % (11.5-14.5)
[2020-09-29 06:00] VITALS: BP 169/89; PULSE 64; RESP 16; TEMP 36.6; O2SAT 98
[2020-09-29 06:08] LABS: Albumin Level 2.8 g/dL (3.5-5.1); Anion Gap 11 mmol/L (8-16); Blood Urea Nitrogen 87 mg/dL (9-20); Calcium 6.6 mg/dL (8.4-10.2); Carbon Dioxide 21 mmol/L (22-30); Chloride 108 mmol/L (98-107); Estimated CRCL calculation 5 ml/min; Estimated Glomerular Filt Rate 4; Glucose 79 mg/dL (65-110); Magnesium 1.7 mg/dL (1.6-2.3); Phosphorus 11.3 mg/dL (2.5-4.5); Potassium 4.5 mmol/L (3.4-5.0); Sodium 140 mmol/L (137-145)
--- NOTE | 2020-09-29 08:25 | P.PNNP_ITS ---
Progress Note: A&P Assessment and Plan (1) MADDY (acute kidney injury): Code(s): N17.9 - Acute kidney failure, unspecified Status: Acute Assessment and Plan: * acute insult or progression of disease? * the huge change in creatinine from a level of around 4 to current number makes it seem like an acute change. * Certainly dehydration may be playing a role. * He recently had a renal biopsy showing significant amount of scar tissue but no active lupus. * The blood in the urine is chronic however he did not have this much protein. 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 * Iron okay. (4) Hypertension: Qualifiers: Hypertension type: essential hypertension Qualified Code(s): I10 - Essential (primary) hypertension Code(s): I10 - Essential (primary) hypertension Status: Chronic Assessment and Plan: * moderately elevated at this time * pain possibly playing a role? * follow trend of hemodynamics (5) Right upper quadrant pain: Code(s): R10.11 - Right upper quadrant pain Status: Chronic Assessment and Plan: * chronic issue for the last year or so * CT negative. * Liver enzymes okay. * no explanation by imaging to date * supportive therapy Will continue to follow. Subjective Date/time seen: 09/29/20 08:25 Interval history: Tae is feeling about the same. He still has his right flank pain. No nausea or vomiting. Exam Narrative: Exam Narrative: General: WD/WN male in NAD Heart: normal S1 and S2; no rub Lungs: clear to auscultation Abdomen: soft, nontender, nondistended, positive bowel sounds He has some pain in the anterior axillary line just under the ribs. It is somewhat variable in location and sometimes is more anterior depending on where I prod. Extremities: no cyanosis or clubbing; no edema Skin: No rash Objective Data Vital Signs Vital Signs: Vital Signs - 24 hr 09/28/20 14:00 09/28/20 22:00 09/29/20 06:00 Temperature 36.4 C L 36.6 C 36.6 C Pulse Rate 65 73 64 Respiratory Rate 16 16 16 Blood Pressure 167/86 H 165/76 H 169/89 H Pulse Oximetry 98 97 98 Intake/Output Intake/Output: Intake & Output 09/26/20 09/27/20 09/28/20 09/29/20 23:59 23:59 23:59 23:59 Intake Total 599 2950 Output Total 1220 1000 Balance 599 1730 -1000 Meds/Results Medications: Active Medications Generic Name Dose Route Start Last Admin Trade Name Freq PRN Reason Stop Dose Admin Hydrocodone Bitart/Acetaminophen 1 tab 09/28/20 08:37 09/28/20 23:16 Hydrocodone/Acetaminophen (*Crx) 5-325 Mg Tablet PO 1 tab Q6H PRN Administration Pain Rated 4-6 Amlodipine Besylate 10 mg 09/29/20 09:00 Amlodipine Besylate 5 Mg Tablet PO DAILY CANDIDA Cyclobenzaprine HCl 5 m
--- NOTE | 2020-09-29 08:25 | PM.PNNEP ---
Progress Note: A&P Assessment and Plan (1) MADDY (acute kidney injury): Code(s): N17.9 - Acute kidney failure, unspecified Status: Acute Assessment and Plan: acute insult or progression of disease? the huge change in creatinine from a level of around 4 to current number makes it seem like an acute change. Certainly dehydration may be playing a role. He recently had a renal biopsy showing significant amount of scar tissue but no active lupus. The blood in the urine is chronic however he did not have this much protein. 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 Iron okay. (4) Hypertension: Qualifiers: Hypertension type: essential hypertension Qualified Code(s): I10 - Essential (primary) hypertension Code(s): I10 - Essential (primary) hypertension Status: Chronic Assessment and Plan: moderately elevated at this time pain possibly playing a role? follow trend of hemodynamics (5) Right upper quadrant pain: Code(s): R10.11 - Right upper quadrant pain Status: Chronic Assessment and Plan: chronic issue for the last year or so CT negative. Liver enzymes okay. no explanation by imaging to date supportive therapy Will continue to follow. Subjective Date/time seen: 09/29/20 08:25 Interval history: Tae is feeling about the same. He still has his right flank pain. No nausea or vomiting. Exam Narrative: Exam Narrative: General: WD/WN male in NAD Heart: normal S1 and S2; no rub Lungs: clear to auscultation Abdomen: soft, nontender, nondistended, positive bowel sounds He has some pain in the anterior axillary line just under the ribs. It is somewhat variable in location and sometimes is more anterior depending on where I prod. Extremities: no cyanosis or clubbing; no edema Skin: No rash Objective Data Vital Signs Vital Signs: Vital Signs - 24 hr 09/28/20 14:00 09/28/20 22:00 09/29/20 06:00 Temperature 36.4 C L 36.6 C 36.6 C Pulse Rate 65 73 64 Respiratory Rate 16 16 16 Blood Pressure 167/86 H 165/76 H 169/89 H Pulse Oximetry 98 97 98 Intake/Output Intake/Output: Intake & Output 09/26/20 09/27/20 09/28/20 09/29/20 23:59 23:59 23:59 23:59 Intake Total 599 2950 Output Total 1220 1000 Balance 599 1730 -1000 Meds/Results Medications: Active Medications Generic Name Dose Route Start Last Admin Trade Name Freq PRN Reason Stop Dose Admin Hydrocodone Bitart/Acetaminophen 1 tab 09/28/20 08:37 09/28/20 23:16 Hydrocodone/Acetaminophen (*Crx) 5-325 Mg Tablet PO 1 tab Q6H PRN Administration Pain Rated 4-6 Amlodipine Besylate 10 mg 09/29/20 09:00 Amlodipine Besylate 5 Mg Tablet PO DAILY CANDIDA Cyclobenzaprine HCl 5 mg 09/27/20 18:40 09/28/20 21:40 Cyclobenzaprine Hcl 5 Mg Tablet PO 5 mg Q8H PRN Administration Muscle Spasm Epoetin Andreas-epbx 10,000 units 09/29/20 09:00 Epoetin Andreas-Epbx 10,000 Units/Ml Vial SUB-Q MOWEFR CANDIDA Sodium Bicarbonate 75 meq/ 1,075 mls @ 50 mls/hr 09/28/20 15:40 09/28/20 16:40 Sodium Chloride IV CONT 09/29/20 11:39 50 mls/hr .[id number] CANDIDA Administration Morphine Sulfate 2 mg 09/28/20 08:38 Morphine Sulfate (*Crx) 4 Mg/Ml Inj IV PUSH Q4H PRN Pain Rated 7-10 Ondansetron HCl 4 mg 09/27/20 13:42 09/28/20 11:12 Ondansetron Inj 4 Mg/2 Ml Vial IV PUSH 4 mg Q4H PRN Administration Nausea Sodium Chloride 10 ml 09/29/20 14:0
[2020-09-29 09:39] LABS: Glucose Point of Care 107 mg/dl (65-105)
[2020-09-29] MEDS: EPOETIN ALFA-EPBX 10,000 UNITS/ML VIAL 10000 UNITS SUB-Q (10:11)
[2020-09-29] MEDS: amLODIPine BESYLATE 5 MG TABLET 10 MG PO (10:13)
[2020-09-29 10:18] LABS: Erythrocyte Sedimentation Rate > 140 mm/hr (0-20)
[2020-09-29 10:57] LABS: Hemoglobin A1C 5.3 % (<5.7)
[2020-09-29 11:34] VITALS: BMI 22.0
[2020-09-29 11:34] LABS: Hepatitis B Surface Antigen Negative (Negative)
[2020-09-29 11:39] LABS: HAV RESULT Negative (Negative); Hepatitis B Core IgM Result Negative (Negative)
[2020-09-29 11:51] LABS: Hepatitis B Surface Anti Res Negative; Hepatitis C Virus Antibody Negative (Negative)
--- NOTE | 2020-09-29 12:36 | WPDGICN ---
Assessment and Plan Assessment and plan (1) Anemia: Code(s): D64.9 - Anemia, unspecified Status: Acute Assessment and Plan: Patient with anemia clinically most likely related to chronic kidney disease. Plan is to proceed with screening colonoscopy to assess for his right-sided abdominal pain as well as his significant anemia. An EGD will be planned as well. Patient also to evaluate for pain as well as anemia. (2) Right upper quadrant pain: Code(s): R10.11 - Right upper quadrant pain Status: Chronic Assessment and Plan: Patient plans of persistent right-sided abdominal pain. Somewhat on the flank and mid abdomen. the source of pain remains unclear. Previously refused any EGD he agrees to proceed with evaluation at this time period is uncertain where this pain emanates from period (3) Lupus: Code(s): M32.9 - Systemic lupus erythematosus, unspecified Status: Chronic (4) Chronic kidney disease, stage IV (severe): Code(s): N18.4 - Chronic kidney disease, stage 4 (severe) Status: Chronic (5) Hematuria: Code(s): R31.9 - Hematuria, unspecified Status: Acute (6) Rheumatoid arthritis: Qualifiers: Rheumatoid arthritis location: unspecified site Rheumatoid factor presence: unspecified presence Qualified Code(s): M06.9 - Rheumatoid arthritis, unspecified Code(s): M06.9 - Rheumatoid arthritis, unspecified Status: Chronic GI Consult Note Consult date/time: 09/29/20 12:36 HPI: Tae Person is a 64 year old male I am asked to see because of anemia. Patient has a history of chronic kidney disease. recently was identified as anemia and I have been asked to see him. Patient denies any obvious signs of GI blood loss. There has been no blood in his stools. No bruising or bleeding elsewhere. He recently has had right side abdominal discomfort. Initially seen in the office by the nurse practitioner. An EGD was requested refused. Because of chronic anemia colonoscopy was advised for screening purposes however he was unable to perform this because of nausea vomiting. Recently admitted the hospital with renal insufficiency. Profound anemia was identified. As stated no signs of GI blood loss noted. GI endoscopy request at this time because of anemia but also for screening and evaluation of abdominal pain. Past medical history is significant for lupus and rheumatoid arthritis. He continues to complain of right-sided abdominal discomfort. Pain is not related to diet or bowel movements. Review of Systems Review of Systems: All systems reviewed & are unremarkable except as noted in HPI and below PMFSH Past Medical History Medical History (Updated 09/29/20 @ 12:43 by Teo Lima MD) CKD (chronic kidney disease) stage 4, GFR 15-29 ml/min Hypertension Kidney failure Lupus Restless leg syndrome Rheumatoid arthritis Tobacco abuse Surgical History Surgical History (Updated 09/29/20 @ 12:43 by Teo Lima MD) H/O right wrist surgery (~1979) History of carpal tunnel release (Unknown) History of facial surgery Hx of cataract extraction Family History Family History (Updated 09/27/20 @ 18:36 by Dominique Palacios RN) Sibling Family history of mental disorder spinal meningitis, brain injury Father Cerebrovascular accident Other Family history of kidney disease Social History Social History (Updated 09/27/20 @ 19:25 by Lavern Hodges NP) Social History: the patient is he lives with his mother and brother. He does not drink any alcohol. He smokes about 2-3 cigarettes a day. He is disabled. 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 Patient has 1 child. Smoking packs per day: 1 Smoking cigarettes per day: 20.0 Years smoked: 50 Smoking pack-years: 50.00 Smoking status: Former smoker Tobacco type: cigarettes Second hand tobacc
--- NOTE | 2020-09-29 12:38 | PDONCCN ---
HPI - Date of Consult Date/Time: 09/29/20 12:38 Requesting Physician: Michael Jeong MD Primary Care Provider: Debbie Alcala MD - Consult Narrative Reason for consult: Normocytic anemia Narrative: Tae Person is a 64 year old male with history of chronic kidney disease stage IV and has been followed by Dr. Buddy Palmer. He also has history of lupus and rheumatoid arthritis. He came into the hospital complain of worsening of flank pain. Patient was supposed to have colonoscopy for anemia but could not tolerate the preparation due to nausea and vomiting. He denies any melena hematochezia. He has been complaining of tiredness and fatigue. Labs on admission showed hemoglobin of 6.8. Patient received 1 unit of packed red blood cell and feeling better. He denies any recent weight loss. No other new complaints. Review of Systems - Review of Systems All systems reviewed & are unremarkable except as noted in HPI and bel - Neurologic Reports system reviewed and no additional complaints, except as documented, Reports hearing normal [facility] Medical History: Medical History (Last Updated 09/27/20 @ 19:22 by Lavern Hodges NP) CKD (chronic kidney disease) stage 4, GFR 15-29 ml/min Hypertension Kidney failure Lupus Restless leg syndrome Rheumatoid arthritis Tobacco abuse Surgical History: Surgical History (Last Updated 09/27/20 @ 19:23 by Lavern Hodges NP) H/O right wrist surgery Onset Date: ~1979 History of carpal tunnel release Onset Date: Unknown History of facial surgery Hx of cataract extraction Family History: Family History (Last Updated 09/27/20 @ 18:36 by Dominique Palacios RN) Sibling Family history of mental disorder spinal meningitis, brain injury Father Cerebrovascular accident Other Family history of kidney disease - Social History Social History: Social History (Last Updated 09/27/20 @ 19:25 by Lavern Hodges NP) Gender Identity: Gender identity (if verbalized by the patient): Male Alcohol Use: Alcohol intake: never Substance Use: Substance use: never Substance use type: does not use Others: Spiritual care concerns: No Smoking Status: Smoking status: Former smoker Tobacco type: cigarettes Second hand tobacco smoke exposure: Yes Smoking end date: 09/25/20 Smoking Pack-years: Smoking packs per day: 1 Smoking cigarettes per day: 20.0 Years smoked: 50 Smoking pack-years: 50.00 Meds Home Medications Medication Instructions Recorded Confirmed Type amlodipine 10 mg PO DAILY 09/27/20 History Allergies Allergy/AdvReac Type Severity Reaction Status Date / Time No Known Allergies Allergy Verified 09/27/20 19:47 Results - Labs CBC & Chem 7: 09/29/20 05:42 09/29/20 05:42 Labs: Short CBC 09/29/20 Range/Units 05:42 WBC 6.0 (4.5-10.0) K/mm3 Hgb 7.0 L (14.0-18.0) g/dL Hct 21.0 L (42.0-52.0) % Plt Count 183 (150-375) k/mm3 BMP 09/29/20 05:42 Sodium 140 Potassium 4.5 Chloride 108 H Carbon Dioxide 21 L BUN 87 H Creatinine 13.40 H Glucose 79 Calcium 6.6 L Liver Function 09/29/20 Range/Units 05:42 Albumin 2.8 L (3.5-5.1) g/dL Assessment and Plan - Additional Plan Normocytic anemia. Patient is a 64-year-old male with history of chronic kidney stage 4 disease as well as lupus and nephritis. He denies any melena hematochezia. He was supposed to have colonoscopy for his anemia but could not tolerate the preparation due to nausea and vomiting. Patient is not going to have colonoscopy. Initial labs showed hemoglobin of 6.8. Iron studies came back normal with normal iron of 56 with iron saturation of 25%. Ferritin was 62. LDH was slightly elevated at 946. Serum protein electrophoresis pending. Vitamin B12 was normal at 490. Plan for colonoscopy noted. This is likely secondary to anemia of
[2020-09-29 12:45] LABS: Glucose Point of Care 75 mg/dl (65-105)
--- NOTE | 2020-09-29 12:55 | PCNSR ---
On 09/29/20, the student,Tova Lyons, provided care and completed [facility] documentation on this patient. I have reviewed the student's documentation and agree with the findings.
[2020-09-29] MEDS: HYDROcodone/acetaminophen (*CRX) 5-325 MG TABLET 1 TAB PO ×2 (13:42→21:16)
[2020-09-29] MEDS: CENTRAL LINE FLUSH 10 ML IV PUSH ×2 (13:47→21:08)
[2020-09-29 14:00] VITALS: BP 147/88; PULSE 69; RESP 20; TEMP 36.2; O2SAT 97
[2020-09-29 17:01] LABS: Basophils Absolute Auto 0.1 K/mm3 (0.0-0.1); Basophils Percent Auto 0.8 % (0.2-1.2); Eosinophils Absolute Auto 0.9 K/mm3 (0-0.3); Eosinophils Percent Auto 13.2 % (0-4.4); Hematocrit 23.7 % (42.0-52.0); Hemoglobin 8.1 g/dL (14.0-18.0); Immature Granulocyte Absolute 0.02 K/mm3 (0.00-0.031); Immature Granulocyte Percent A 0.3 % (0-0.5); Lymphocytes Absolute Auto 1.25 K/mm3 (0.9-3.2); Lymphocytes Percent Auto 19.3 % (18.3-44.2); Mean Corpuscular HGB Conc 34.2 g/dl (32-36); Mean Corpuscular Hemoglobin 30.8 pg (26-34); Mean Corpuscular Volume 90.1 fl (80-100); Mean Platelet Volume 9.1 fl (7.4-10.4); Monocytes Absolute Auto 0.4 K/mm3 (0.1-0.6); Monocytes Percent Auto 6.3 % (2.6-8.5); Neutrophils Absolute Auto 3.9 K/mm3 (1.3-6.7); Neutrophils Percent Auto 60.1 % (45.5-73.1); Platelet Count Result 198 k/mm3 (150-375); Red Blood Count 2.63 M/mm3 (4.6-6.20); Red Cell Distribution Width 13.1 % (11.5-14.5); White Blood Count 6.5 K/mm3 (4.5-10.0)
[2020-09-29 17:13] LABS: Partial Thromboplastin Time 44.5 SECONDS (22.3-36.8)
--- NOTE | 2020-09-29 17:31 | PM.IMPN ---
Progress Note: A&P Assessment and Plan (1) Anemia: Code(s): D64.9 - Anemia, unspecified Status: Acute Assessment and Plan: Check H&H every 6 hours GI following, recommendations appreciated He was supposed to have colonoscopy as an outpatient but could not continue his breath is he felt nauseated. stool for occult blood. Iron level is low which is 29. TIBC is 320 Hematology following, recommendations appreciate. 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 Doppler ultrasound has been found to be negative for DVT (3) Hypertension: Qualifiers: Hypertension type: essential hypertension Qualified Code(s): I10 - Essential (primary) hypertension Code(s): I10 - Essential (primary) hypertension Status: Chronic Assessment and Plan: Continue with home medications, amlodipine (4) Lupus: Code(s): M32.9 - Systemic lupus erythematosus, unspecified Status: Chronic Assessment and Plan: He was supposed to see rheumatology as an outpatient (5) Right upper quadrant pain: Code(s): R10.11 - Right upper quadrant pain Status: Chronic Assessment and Plan: He had a CT scan without contrast today and there was no CT correlation for the patient's symptoms Continue with Vicodin and Flexeril for now V/Q scan noted GI consulted, plan for EGD (6) Tobacco abuse: Code(s): Z72.0 - Tobacco use Status: Acute Assessment and Plan: patient stated that he is starting to cut down his cigarettes every day and is down to just a couple cigarettes a day Cessation advised (7) CKD (chronic kidney disease) stage 4, GFR 15-29 ml/min: Code(s): N18.4 - Chronic kidney disease, stage 4 (severe) Status: Acute Assessment and Plan: eGFR is only 3-->4 today Nephrology following, recommendations appreciated Follwed o/p. 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 Cr 14.8-->-->12.8-->13.4 today S/p IVF Monitor Subjective Date/time seen: 09/29/20 17:31 Pt seen and evaluated; no acute events overnight; Hgb 7; still with right flank pain; no new complaints; Review of Systems Review of Systems: All systems reviewed & are unremarkable except as noted in HPI and below Exam Const: General: no acute distress, alert and awake Orientation/consciousness: patient oriented x3 HENMT: Head: normocephalic and atraumatic Ears: hearing grossly normal bilaterally and external ears normal Face and sinus: face symmetric Mouth: Yes Normal oral and palatal mucosa present Eyes: Pupils: Equal, round and reactive pupils present EOM: EOMs intact bilaterally Neck: Neck: full ROM, trachea midline and no JVD Thyroid: thyroid normal Chest: Chest palpation & inspection: normal inspection of the chest Resp: Effort & Inspection: normal respiratory effort Auscultation: clear to auscultation bilaterally Cardio: Jugular venous distension: no JVD Rate: regular rate Rhythm: regular rhythm Heart sounds: S1 normal heart sound present and S2 normal heart sound present GI: Inspection: normal to inspection GI Palp: Yes Soft to palpation Percussion: Yes normal to percussion Auscultation: normal bowel sounds : General: Yes no CVA tenderness Back/Spine/Pelvis: Back: no CVA tenderness Skin: General skin exam: normal color Rashes: no rashes Neuro: General: patient oriented x3 and CN's II-XI intact bilaterally Cranial nerves: Yes Equal, round and reactive pupils present Speech: normal speech Psych: Appearance: grossly normal Affect: normal affect Judgement: Good judgement present (Psych) Objective Data Vital Signs Vital Signs: Vital Sig
[2020-09-29 17:42] LABS: Prothrombin Time 12.9 Seconds (11.1-14.7)
[2020-09-29] MEDS: HEPARIN SODIUM 5,000 UNITS/ML VIAL 5000 UNITS IV PUSH (18:15)
[2020-09-29] MEDS: HEPARIN SOD/D5W 100 UNITS/ML 25,000 UNITS/250 ML BAG 11 UNITS IV CONT (18:15)
[2020-09-29 20:00] VITALS: PULSE 69; RESP 20; O2SAT 97
[2020-09-29 22:00] VITALS: BP 165/85; PULSE 72; RESP 20; TEMP 36.8; O2SAT 99
--- NOTE | 2020-09-30 | ECHO_ITS ---
Patient Info Name: Tae Person Age: 64 years : 1955 Gender: Male Ht: 66 in Wt: 136 lbs BSA: 1.70 m2 HR: 60 bpm BP: 149 / 74 mmHg Technical Quality: Good Exam Date: 09/30/2020 10:38 AM Exam Location: [facility] Patient Status: Inpatient Admit Date: 09/27/2020 Staff Ordering Physician: Tae Estrada MD Disabilities Caregiver: Sharri Kulkarni RDCS Attending Provider: Michael Jeong MD Referring Physician: Sean MUELLER; Exam Type: CA echo doppler color flow Study Info Indications - PE, ASSESS LV, RV FUNCTION, PA PRESSURES Complete two-dimensional, color flow and Doppler transthoracic echocardiogram is performed. Summary 1. Complete two-dimensional, color flow and Doppler transthoracic echocardiogram is performed. 2. The mitral valve has mildly calcified annulus. 3. Left ventricular chamber dimension is normal. 4. Left ventricular systolic function is normal, estimated at 60-65%. 5. The left ventricular diastolic function is abnormal. 6. E/e' 11 is mildly elevated. 7. Left atrial chamber dimension is mildly enlarged. 8. There is mild aortic valve sclerosis. 9. There is mild mitral valve regurgitation. 10. No pulmonary hypertension, estimated pulmonary arterial systolic pressure is 34 mmHg. 11. There is mild tricuspid valve regurgitation. Left Ventricle E/e' 11 is mildly elevated. Left ventricular chamber dimension is normal. Left ventricular systolic function is normal, estimated at 60-65%. The left ventricular diastolic function is abnormal. Right Ventricle Right ventricular systolic function is normal and with normal TAPSE 2.0 cm. Right ventricular chamber dimension is normal. Left Atria Left atrial chamber dimension is mildly enlarged. Right Atria Right atrial chamber dimension is normal. Aortic Valve The aortic valve is trileaflet. There is mild aortic valve sclerosis. There is no aortic valve stenosis. There is no aortic valve regurgitation. Pulmonic Valve There is no pulmonic regurgitation. Mitral Valve The mitral valve has mildly calcified annulus. There is no mitral valve stenosis. There is mild mitral valve regurgitation. Tricuspid Valve No pulmonary hypertension, estimated pulmonary arterial systolic pressure is 34 mmHg. There is mild tricuspid valve regurgitation. Pericardium/Pleural There is no pericardial effusion. Inferior Vena Cava Normal inferior vena cava with >50% collapse upon inspiration consistent with normal right atrial pressure, 5 mmHg. Aorta The aortic root size at the sinus of Valsalva is normal. Tricuspid Valve Name Value Normal Estimated PAP/RSVP RA Pressure 5 mmHg <=5 Report Signatures
[2020-09-30 01:47] LABS: Partial Thromboplastin Time 78.2 SECONDS (22.3-36.8)
[2020-09-30 06:00] VITALS: BP 149/74; PULSE 73; RESP 20; TEMP 36.7; O2SAT 98
[2020-09-30] MEDS: ONDANSETRON INJ 4 MG/2 ML VIAL IV PUSH (06:15)
[2020-09-30] MEDS: CENTRAL LINE FLUSH 10 ML IV PUSH ×3 (06:16→21:07)
--- NOTE | 2020-09-30 06:30 | P.PNNP_ITS ---
Progress Note: A&P Assessment and Plan (1) MADDY (acute kidney injury): Code(s): N17.9 - Acute kidney failure, unspecified Status: Acute Assessment and Plan: * acute insult or progression of disease? * the huge change in creatinine from a level of around 4 to current number makes it seem like an acute change. * Certainly dehydration may be playing a role. * He recently had a renal biopsy showing significant amount of scar tissue but no active lupus. * The blood in the urine is chronic however he did not have this much protein. * Will get a renal scan to check blood flow to the kidneys. Could this be a renal infarct? Infarct would be seem unlikely to last this many weeks. 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 * Iron okay. * hemoglobin 8.1 today. (4) Hypertension: Qualifiers: Hypertension type: essential hypertension Qualified Code(s): I10 - Essential (primary) hypertension Code(s): I10 - Essential (primary) hypertension Status: Chronic Assessment and Plan: * moderately elevated at this time * pain possibly playing a role? * Currently on amlodipine only. * Will add metoprolol. (5) Right upper quadrant pain: Code(s): R10.11 - Right upper quadrant pain Status: Chronic Assessment and Plan: * chronic issue for the last year or so * CT negative. * Liver enzymes okay. * no explanation by imaging to date * Check renal scan * supportive therapy Will continue to follow. Subjective Date/time seen: 09/30/20 06:30 Interval history: Tae is feeling about the same. He still has his right flank pain. This is worse with any movement of his torso, cough, and even if he is hungry. No skin rash over the area. No nausea or vomiting. Exam Narrative: Exam Narrative: General: WD/WN male in NAD Heart: normal S1 and S2; no rub Lungs: clear to auscultation Abdomen: soft, nontender, nondistended, positive bowel sounds Tenderness in the same region. Extremities: no cyanosis or clubbing; no edema Skin: No rash Objective Data Vital Signs Vital Signs: Vital Signs - 24 hr 09/29/20 14:00 09/29/20 20:00 09/29/20 22:00 Temperature 36.2 C L 36.8 C Pulse Rate 69 69 72 Respiratory Rate 20 20 20 Blood Pressure 147/88 H 165/85 H Pulse Oximetry 97 97 99 Intake/Output Intake/Output: Intake & Output 09/27/20 09/28/20 09/29/20 09/30/20 23:59 23:59 23:59 23:59 Intake Total 599 2950 2175 Output Total 1220 2150 Balance 599 1730 25 Meds/Results Medications: Active Medications Generic Name Dose Route Start Last Admin Trade Name Freq PRN Reason Stop Dose Admin Hydrocodone Bitart/Acetaminophen 1 tab 09/28/20 08:37 09/29/20 21:16 Hydrocodone/Acetaminophen
--- NOTE | 2020-09-30 06:30 | PM.PNNEP ---
Progress Note: A&P Assessment and Plan (1) MADDY (acute kidney injury): Code(s): N17.9 - Acute kidney failure, unspecified Status: Acute Assessment and Plan: acute insult or progression of disease? the huge change in creatinine from a level of around 4 to current number makes it seem like an acute change. Certainly dehydration may be playing a role. He recently had a renal biopsy showing significant amount of scar tissue but no active lupus. The blood in the urine is chronic however he did not have this much protein. Will get a renal scan to check blood flow to the kidneys. Could this be a renal infarct? Infarct would be seem unlikely to last this many weeks. 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 Iron okay. hemoglobin 8.1 today. (4) Hypertension: Qualifiers: Hypertension type: essential hypertension Qualified Code(s): I10 - Essential (primary) hypertension Code(s): I10 - Essential (primary) hypertension Status: Chronic Assessment and Plan: moderately elevated at this time pain possibly playing a role? Currently on amlodipine only. Will add metoprolol. (5) Right upper quadrant pain: Code(s): R10.11 - Right upper quadrant pain Status: Chronic Assessment and Plan: chronic issue for the last year or so CT negative. Liver enzymes okay. no explanation by imaging to date Check renal scan supportive therapy Will continue to follow. Subjective Date/time seen: 09/30/20 06:30 Interval history: Tae is feeling about the same. He still has his right flank pain. This is worse with any movement of his torso, cough, and even if he is hungry. No skin rash over the area. No nausea or vomiting. Exam Narrative: Exam Narrative: General: WD/WN male in NAD Heart: normal S1 and S2; no rub Lungs: clear to auscultation Abdomen: soft, nontender, nondistended, positive bowel sounds Tenderness in the same region. Extremities: no cyanosis or clubbing; no edema Skin: No rash Objective Data Vital Signs Vital Signs: Vital Signs - 24 hr 09/29/20 14:00 09/29/20 20:00 09/29/20 22:00 Temperature 36.2 C L 36.8 C Pulse Rate 69 69 72 Respiratory Rate 20 20 20 Blood Pressure 147/88 H 165/85 H Pulse Oximetry 97 97 99 Intake/Output Intake/Output: Intake & Output 09/27/20 09/28/20 09/29/20 09/30/20 23:59 23:59 23:59 23:59 Intake Total 599 2950 2175 Output Total 1220 2150 Balance 599 1730 25 Meds/Results Medications: Active Medications Generic Name Dose Route Start Last Admin Trade Name Freq PRN Reason Stop Dose Admin Hydrocodone Bitart/Acetaminophen 1 tab 09/28/20 08:37 09/29/20 21:16 Hydrocodone/Acetaminophen (*Crx) 5-325 Mg Tablet PO 1 tab Q6H PRN Administration Pain Rated 4-6 Amlodipine Besylate 10 mg 09/29/20 09:00 09/29/20 10:13 Amlodipine Besylate 5 Mg Tablet PO 10 mg DAILY CANDIDA Administration Cyclobenzaprine HCl 5 mg 09/27/20 18:40 09/28/20 21:40 Cyclobenzaprine Hcl 5 Mg Tablet PO 5 mg Q8H PRN Administration Muscle Spasm Dextrose 12.5 gm 09/29/20 08:30 Dextrose 50% 25 Gm/50 Ml Syringe IV PUSH PRN PRN Hypoglycemia Protocol Epoetin Andreas-epbx 10,000 units 09/29/20 09:00 09/29/20 10:11 Epoetin Andreas-Epbx 10,000 Units/Ml Vial SUB-Q 10,000 units MOWEFR CANDIDA Administration Glucagon 1 mg 09/29/20 08:30 Glucagon For Inj 1 Mg
[2020-09-30 06:57] LABS: Basophils Percent Auto 0.6 % (0.2-1.2); Eosinophils Absolute Auto 0.9 K/mm3 (0-0.3); Eosinophils Percent Auto 13.8 % (0-4.4); Hematocrit 22.5 % (42.0-52.0); Hemoglobin 7.5 g/dL (14.0-18.0); Immature Granulocyte Absolute 0.02 K/mm3 (0.00-0.031); Immature Granulocyte Percent A 0.3 % (0-0.5); Lymphocytes Absolute Auto 1.41 K/mm3 (0.9-3.2); Lymphocytes Percent Auto 22.4 % (18.3-44.2); Mean Corpuscular HGB Conc 33.3 g/dl (32-36); Mean Corpuscular Hemoglobin 30.1 pg (26-34); Mean Corpuscular Volume 90.4 fl (80-100); Mean Platelet Volume 9.4 fl (7.4-10.4); Monocytes Absolute Auto 0.3 K/mm3 (0.1-0.6); Monocytes Percent Auto 5.2 % (2.6-8.5); Neutrophils Absolute Auto 3.6 K/mm3 (1.3-6.7); Neutrophils Percent Auto 57.7 % (45.5-73.1); Platelet Count Result 180 k/mm3 (150-375); Red Blood Count 2.49 M/mm3 (4.6-6.20); Red Cell Distribution Width 13.1 % (11.5-14.5); White Blood Count 6.3 K/mm3 (4.5-10.0)
[2020-09-30 07:06] LABS: Albumin Level 3.1 g/dL (3.5-5.1); Anion Gap 14 mmol/L (8-16); Blood Urea Nitrogen 87 mg/dL (9-20); Calcium 6.6 mg/dL (8.4-10.2); Carbon Dioxide 21 mmol/L (22-30); Chloride 104 mmol/L (98-107); Creatine Kinase 229 U/L (55-170); Estimated CRCL calculation 5 ml/min; Estimated Glomerular Filt Rate 4; Glucose 84 mg/dL (65-110); Phosphorus 10.9 mg/dL (2.5-4.5); Potassium 4.1 mmol/L (3.4-5.0); Sodium 139 mmol/L (137-145)
[2020-09-30] MEDS: amLODIPine BESYLATE 5 MG TABLET 10 MG PO (08:13)
[2020-09-30 08:14] VITALS: PULSE 64
[2020-09-30] MEDS: METOPROLOL TARTRATE 25 MG TABLET PO ×2 (08:14→21:07)
[2020-09-30 08:37] LABS: Partial Thromboplastin Time 65.1 SECONDS (22.3-36.8)
[2020-09-30 08:50] LABS: NT Pro B Type Natriuretic Pept 18000 pg/mL (5-100); Troponin I 0.023 ng/mL (0.000-0.034)
--- NOTE | 2020-09-30 08:50 | PM.CNPUL ---
Assessment and Plan Assessment and plan (1) Pulmonary embolism: Code(s): I26.99 - Other pulmonary embolism without acute cor pulmonale Status: Acute Assessment and Plan: Patient with right-sided pleuritic and abdominal pain, elevated D-dimer, V/Q scan with intermediate probability and negative lower extremity Dopplers. at this time I will give the patient a diagnosis of unprovoked pulmonary embolism. I agree with continuation of IV heparin for likely pulmonary embolism and he will need at least 6 months anticoagulation. Patient cannot undergo a CT angiogram of the chest given his renal failure. If patient does initiate dialysis I would do a CT angiogram of the chest at that time. Patient is hemodynamically stable and on room air with adequate oxygenation at this time. I will order an upper extremity Doppler looking for any upper extremity DVTs. I will order cardiac echocardiogram to assess RV size, RV function and pulmonary pressures. Will order a BNP and troponin looking for evidence of heart strain. Patient with a history of lupus and rheumatoid arthritis I will order an anticardiolipin IgG and IgM, a lupus anticoagulant and anti beta 2 glycoprotein IgG and IgM looking for antiphospholipid syndrome. I am not convinced patient's right upper quadrant abdominal pain is due to his pulmonary embolism especially given there are no perfusion defects in his right lower lobe. Agree with continued workup for this right upper quadrant abdominal pain. Will follow with you. History of Present Illness History of Present Illness Consult date: 09/30/20 Requesting physician: Mariaelena Cox APN-C Reason for consult: pulmonary embolism Chief complaint: acute chronic renal failure, anemia Narrative: This is a new pulmonary consult for pulmonary embolism this is a 64-year-old man with a history of lupus and rheumatoid arthritis diagnosed approximately 5-6 years ago. Patient was on hydroxychloroquine for about a year but has been off of medicines for 2-3 years. Patient has chronic renal failure with a creatinine baseline of 3.54 on 05/22/20. Approximately 1 month ago a patient had a 1 week history of right sided flank -upper abdominal pain that was worse with coughing deep breathing and hiccuping. Occasionally this sharp knife-like pain would migrate to the right shoulder patient states the pain was intermittent and resolved over about a week. Patient presents now on her 09/27/2020 with another episode of right-sided flank and upper abdominal pain that is pleuritic in nature worse with coughing, deep breathing and hiccuping. Patient states he has no shortness of breath other than he he is limited in taking deep breaths and has to take shallow breaths. Patient denied any fever, chills, rigors, phlegm production, hemoptysis. Patient denied any recent long car rides plane rides or immobility. Patient denies any family history of blood clots and has never had any blood clots himself. Patient smoked tobacco age 17-2 months ago at about 1 pack per day. For the last 5 years he has had minimal phlegm production but no hemoptysis at baseline. 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 Patient was admitted with anemia, acute on chronic renal failure and this right abdominal flank pain. Patient was guaiac-negative in the emergency department. His hemoglobin was 6.8 and he received 1 unit of packed red blood cells. Patient's creatinine was 14.8. CT scan of the abdomen was negative. Patient had lower extremity Dopplers on 09/28 which were negative for DVT. Patient had a V/Q scan on 09/29 that showed a moderate anterior ba
[2020-09-30] MEDS: HEPARIN SODIUM 5,000 UNITS/ML VIAL 2500 UNITS IV PUSH ×2 (09:06→16:43)
[2020-09-30] MEDS: HYDROcodone/acetaminophen (*CRX) 5-325 MG TABLET 1 TAB PO ×2 (09:15→18:05)
--- NOTE | 2020-09-30 09:51 | WPDGIPROGNO ---
Progress Note: A&P Assessment and Plan (1) Acute on chronic anemia: Code(s): D64.9 - Anemia, unspecified Status: Acute Assessment and Plan: EGD and colonoscopy cancelled in setting of possible diagnosis of PE now on heparin drip no overt gib and hb low but stable no urgent need to proceed with scopes unless condition changes Dr Rea returns tomorrow and will resume care (2) Right upper quadrant pain: Code(s): R10.11 - Right upper quadrant pain Status: Chronic Assessment and Plan: egd at later time (3) Acute on chronic renal failure: Code(s): N17.9 - Acute kidney failure, unspecified; N18.9 - Chronic kidney disease, unspecified Status: Acute Assessment and Plan: by nephrology, work up in progress (4) Elevated d-dimer: Code(s): R79.89 - Other specified abnormal findings of blood chemistry Status: Acute (5) Pulmonary embolism: Code(s): I26.99 - Other pulmonary embolism without acute cor pulmonale Status: Acute Assessment and Plan: v/q indeterminate, treated with anticoagulant now can not get CTA chest because renal failure (6) Lupus: Code(s): M32.9 - Systemic lupus erythematosus, unspecified Status: Chronic Subjective Date/time seen: 09/30/20 09:51 Interval history: V/Q scan indeterminate for PE, started on heparin drip by primary team. Patient denies any overt gib, still with similar ruq pain Review of Systems Review of Systems: All systems reviewed & are unremarkable except as noted in HPI and below Exam Const: General: cooperative and healthy appearing Orientation/consciousness: oriented to person, oriented to place and oriented to time HENMT: Head: normal to inspection Ears: hearing grossly normal bilaterally General nose exam: Normal nares present Mouth: Yes Normal oral and palatal mucosa present Throat: tonsils absent Eyes: General: appearance normal, both eyes and all related structures Neck: Neck: normal visual inspection and supple Chest: Chest palpation & inspection: normal inspection of the chest Other: some pain to palpation on right lower rib posteriorly. Left without any pain Resp: Effort & Inspection: normal respiratory effort and able to speak in complete sentences Auscultation: no rhonchi and no wheezes Cardio: Jugular venous distension: no JVD Rate: regular rate GI: Inspection: normal to inspection, no abdominal wall ecchymosis and no edema GI Palp: Yes abdominal tenderness and Yes Soft to palpation Auscultation: normal bowel sounds Other: RUQ pain Skin: General skin exam: normal color Neuro: General: oriented to person, oriented to place and oriented to time Speech: normal speech Extrem: General: normal to inspection Psych: Appearance: grossly normal Mental Status: mental status grossly normal Objective Data Vital Signs Vital Signs: Vital Signs - 24 hr 09/29/20 14:00 09/29/20 20:00 09/29/20 22:00 Temperature 97.2 F L 98.3 F Pulse Rate 69 69 72 Respiratory Rate 20 20 20 Blood Pressure 147/88 H 165/85 H Pulse Oximetry 97 97 99 09/30/20 06:00 09/30/20 08:14 Temperature 98.1 F Pulse Rate 73 64 Respiratory Rate 20 Blood Pressure 149/74 H Pulse Oximetry 98 Intake/Output Intake/Output: Intake & Output 09/27/20 09/28/20 09/29/20 09/30/20 23:59 23:59 23:59 23:59 Intake Total 599 2950 2175 1340 Output Total 1220 2150 1700 Balance 599 1730 25 -360 Meds/Results Medications: Active Medications Generic Name Dose Route Start Last Admin Trade Name Freq PRN Reason Stop Dose Admin Hydrocodone Bitart/Acetaminophen 1 tab 09/28/20 08:37 09/30/20 09:15 Hydrocodone/Acetaminophen (*Crx) 5-325 Mg Tablet PO 1 tab Q6H PRN Administration Pain Rated 4-6 Amlodipine Besylate 10 mg 09/29/20 09:00 09/30/20 08:13 Amlodipine Besylate 5 Mg Tablet PO 10 mg DAILY CANDIDA Administration Cyclobenzaprine HCl 5 mg 09/27/20 18:40 09/28/20 21:40
--- NOTE | 2020-09-30 10:07 | PM.IMPN ---
Progress Note: A&P Assessment and Plan (1) Anemia: Code(s): D64.9 - Anemia, unspecified Status: Acute Assessment and Plan: GI following, recommendations appreciated He was supposed to have colonoscopy as an outpatient but could not continue his breath is he felt nauseated. stool for occult blood. Iron level is low which is 29. TIBC is 320 Hematology following, recommendations appreciated Hemoglobin today 7.0-->7.5 today S/p 1 unit of PRBC iron supplement and Epogen initiated per hemonc, will f/u o/p (2) Elevated d-dimer: Code(s): R79.89 - Other specified abnormal findings of blood chemistry Status: Acute Assessment and Plan: V/Q scan with PE Heparin gtt initiated Wax Machine Operator following, recommendations appreciated ECHO ordered Doppler ultrasound has been found to be negative for DVT Follow labs for antiphospholipid syndrome (3) Hypertension: Qualifiers: Hypertension type: essential hypertension Qualified Code(s): I10 - Essential (primary) hypertension Code(s): I10 - Essential (primary) hypertension Status: Chronic Assessment and Plan: Continue with home medications, amlodipine (4) Lupus: Code(s): M32.9 - Systemic lupus erythematosus, unspecified Status: Chronic Assessment and Plan: He was supposed to see rheumatology as an outpatient (5) Right upper quadrant pain: Code(s): R10.11 - Right upper quadrant pain Status: Chronic Assessment and Plan: He had a CT scan without contrast today and there was no CT correlation for the patient's symptoms Continue with Vicodin and Flexeril for now V/Q scan noted GI consulted, EGD and colonoscopy on hold for now Renal scan neg (6) Tobacco abuse: Code(s): Z72.0 - Tobacco use Status: Acute Assessment and Plan: patient stated that he is starting to cut down his cigarettes every day and is down to just a couple cigarettes a day Cessation advised (7) CKD (chronic kidney disease) stage 4, GFR 15-29 ml/min: Code(s): N18.4 - Chronic kidney disease, stage 4 (severe) Status: Acute Assessment and Plan: eGFR is only 3-->4 today Nephrology following, recommendations appreciated Follwed o/p. 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 Cr 14.8-->-->12.8-->13.4-->13.3 today S/p IVF Monitor Subjective Date/time seen: 09/30/20 10:07 pt seen and evaluated; continues with pain on right side Review of Systems Review of Systems: All systems reviewed & are unremarkable except as noted in HPI and below Exam Const: General: cooperative, comfortable, no acute distress, alert and awake Nutritional Appearance: average body habitus and well nourished Orientation/consciousness: oriented to person, oriented to place, oriented to time and patient oriented x3 Limitations: no limitations HENMT: Head: normal to inspection, No palpable skull fracture present, normocephalic and atraumatic Ears: hearing grossly normal bilaterally and external ears normal General nose exam: Normal external nose present and Normal nares present Face and sinus: face symmetric Mouth: Yes Normal oral and palatal mucosa present Eyes: General: appearance normal, both eyes and all related structures Alignment and Position: alignment normal Periorbital: periorbital findings normal Eyelids: eyelids normal Conjunctivae: conjunctivae normal Sclera: sclerae normal Cornea: corneas normal Pupils: Equal, round and reactive pupils present EOM: EOMs intact bilaterally Neck: Neck: full ROM, trachea midline, supple and no JVD Thyroid: thyroid normal Carotids: normal carotid upstroke Lymphatic: no lymphadenopathy noted Chest: Chest palpation & inspection: normal inspection of the chest Resp: Effort & Inspection: normal respiratory effort Auscultation: clear to auscultation bilaterally Percussion: percussion normal Cardio: Jugular
[2020-09-30] MEDS: MORPHINE SULFATE (*CRX) 4 MG/ML INJ 2 MG IV PUSH (14:31)
[2020-09-30 15:46] LABS: Partial Thromboplastin Time 67.8 SECONDS (22.3-36.8)
[2020-09-30] MEDS: HEPARIN SOD/D5W 100 UNITS/ML 25,000 UNITS/250 ML BAG 13 UNITS IV CONT (16:44)
[2020-09-30 21:07] VITALS: PULSE 72
[2020-09-30 21:10] VITALS: BP 149/83; PULSE 69; RESP 20; TEMP 36.2; O2SAT 95
[2020-09-30 23:17] LABS: Partial Thromboplastin Time 86.4 SECONDS (22.3-36.8)
--- NOTE | 2020-09-30 23:24 | PC.NURSE ---
2300 PTT=86.4, NO CHANGE IN RATE
[2020-10-01] VITALS (24 sets, daily range): BP systolic 131–167; BP diastolic 77–91; PULSE 54–83; RESP 10–20; TEMP 36.1–37.1; O2SAT 95–100
[2020-10-01 05:14] LABS: Basophils Percent Auto 0.4 % (0.2-1.2); Eosinophils Absolute Auto 0.9 K/mm3 (0-0.3); Eosinophils Percent Auto 13.5 % (0-4.4); Hematocrit 22.6 % (42.0-52.0); Hemoglobin 7.4 g/dL (14.0-18.0); Immature Granulocyte Absolute 0.02 K/mm3 (0.00-0.031); Immature Granulocyte Percent A 0.3 % (0-0.5); Lymphocytes Absolute Auto 1.63 K/mm3 (0.9-3.2); Lymphocytes Percent Auto 23.7 % (18.3-44.2); Mean Corpuscular HGB Conc 32.7 g/dl (32-36); Mean Corpuscular Hemoglobin 29.8 pg (26-34); Mean Corpuscular Volume 91.1 fl (80-100); Monocytes Absolute Auto 0.4 K/mm3 (0.1-0.6); Monocytes Percent Auto 6.2 % (2.6-8.5); Neutrophils Absolute Auto 3.9 K/mm3 (1.3-6.7); Neutrophils Percent Auto 55.9 % (45.5-73.1); Platelet Count Result 166 k/mm3 (150-375); Red Blood Count 2.48 M/mm3 (4.6-6.20); Red Cell Distribution Width 13.2 % (11.5-14.5); White Blood Count 6.9 K/mm3 (4.5-10.0)
[2020-10-01 05:26] LABS: Albumin Level 3.2 g/dL (3.5-5.1); Anion Gap 12 mmol/L (8-16); Blood Urea Nitrogen 87 mg/dL (9-20); Calcium 6.9 mg/dL (8.4-10.2); Carbon Dioxide 21 mmol/L (22-30); Chloride 107 mmol/L (98-107); Estimated CRCL calculation 5 ml/min; Estimated Glomerular Filt Rate 4; Glucose 89 mg/dL (65-110); Potassium 4.1 mmol/L (3.4-5.0); Sodium 140 mmol/L (137-145)
[2020-10-01 05:34] LABS: Partial Thromboplastin Time 86.5 SECONDS (22.3-36.8)
[2020-10-01] MEDS: CENTRAL LINE FLUSH 10 ML IV PUSH ×3 (06:07→21:23)
--- NOTE | 2020-10-01 08:09 | PM.PNNEP ---
Progress Note: A&P Assessment and Plan (1) MADDY (acute kidney injury): Code(s): N17.9 - Acute kidney failure, unspecified Status: Acute Assessment and Plan: Renal scan shows minimal perfusion to either kidney. most likely just progression of chronic disease. 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 I think he needs dialysis. I will ask Dr. Weeks et al to place a tunneled dialysis catheter. (3) Anemia: Code(s): D64.9 - Anemia, unspecified Status: Acute Assessment and Plan: no evidence of GI bleed (guaiac negative in ER) suspect related to worsening kidney disease (?) On EPO. Iron okay. hemoglobin 7.4 today. (4) Hypertension: Qualifiers: Hypertension type: essential hypertension Qualified Code(s): I10 - Essential (primary) hypertension Code(s): I10 - Essential (primary) hypertension Status: Chronic Assessment and Plan: moderately elevated at this time pain possibly playing a role? Currently on amlodipine and metoprolol. The latter was just started yesterday Will give it 1 more day. (5) Right upper quadrant pain: Code(s): R10.11 - Right upper quadrant pain Status: Chronic Assessment and Plan: chronic issue for the last year or so CT negative. Liver enzymes okay. Renal scan does not show unilateral perfusion defect so I doubt if this is a right renal infarct. Perfusion scan only of the lungs showed multiple defects but none in the right lower quadrant. Radiologist's read this as intermediate probability. I talked with Dr. Estrada at length. I agree that we need a CT angio to prove whether not he has a pulmonary embolus. We can get this done after he gets his catheter in and we can do a dialysis afterwards to remove the dye. I do not think the contrast is going to make a difference and whether he needs to start dialysis or not. However preservation of residual renal function is important in general for dialysis patients. discussed at length with the patient. Subjective Date/time seen: 10/01/20 08:09 Interval history: Tae is feeling about the same. He still has his right flank pain. seems to be a little better. No skin rash over the area. No nausea or vomiting. Exam Narrative: Exam Narrative: General: WD/WN male in NAD Heart: normal S1 and S2; no rub Lungs: clear to auscultation Abdomen: soft, nontender, nondistended, positive bowel sounds Tenderness in the same region. Extremities: no cyanosis or clubbing; no edema Skin: No rash or sq nodules Objective Data Vital Signs Vital Signs: Vital Signs - 24 hr 09/30/20 08:14 09/30/20 21:07 09/30/20 21:10 Temperature 36.2 C L Pulse Rate 64 72 69 Respiratory Rate 20 Blood Pressure 149/83 H Pulse Oximetry 95 10/01/20 04:57 Temperature 36.3 C L Pulse Rate 57 L Respiratory Rate 18 Blood Pressure 151/79 H Pulse Oximetry 96 Intake/Output Intake/Output: Intake & Output 09/28/20 09/29/20 09/30/20 10/01/20 23:59 23:59 23:59 23:59 Intake Total 2950 2175 2218 240 Output Total 1220 2150 2700 800 Balance 1735 92 -280 -850 Meds/Results Medications: Active Medications Generic Name Dose Route Start Last Admin Trade Name Freq PRN Reason Stop Dose Admin Hydrocodone Bitart/Acetaminophen 1 tab 09/28/20 08:37 09/30/20 18:05 Hydrocodone/Acetaminophen (*Crx) 5-325 Mg Tablet PO 1 tab Q6H PRN Administration Pain Rated 4-6 Amlodipine Besylate 10 mg 09/29/20 09:00 09/30/20 08:13 Amlodipine Besylate 5 Mg Tablet PO 10 mg DAILY CANDIDA Administration Cyclobenzaprine HCl 5 mg 09/27/20 18:
--- NOTE | 2020-10-01 08:13 | PM.IMPN ---
Progress Note: A&P Assessment and Plan (1) Anemia: Code(s): D64.9 - Anemia, unspecified Status: Acute Assessment and Plan: GI following, recommendations appreciated He was supposed to have colonoscopy as an outpatient but could not continue his breath is he felt nauseated. stool for occult blood. Iron level is low which is 29. TIBC is 320 Hematology following, recommendations appreciated Hemoglobin today 7.0-->7.5-->7.4 today S/p 1 unit of PRBC iron supplement and Epogen initiated per hemonc, will f/u o/p (2) Elevated d-dimer: Code(s): R79.89 - Other specified abnormal findings of blood chemistry Status: Acute Assessment and Plan: V/Q scan with PE Heparin gtt initiated Residential Supervisor following, recommendations appreciated ECHO-->Left ventricular systolic function is normal, estimated at 60-65%; left ventricular diastolic function is abnormal Doppler ultrasound has been found to be negative for DVT Follow labs for antiphospholipid syndrome Plan for CTA s/p HD catheter placement (3) Hypertension: Qualifiers: Hypertension type: essential hypertension Qualified Code(s): I10 - Essential (primary) hypertension Code(s): I10 - Essential (primary) hypertension Status: Chronic Assessment and Plan: Continue with home medications, amlodipine (4) Lupus: Code(s): M32.9 - Systemic lupus erythematosus, unspecified Status: Chronic Assessment and Plan: He was supposed to see rheumatology as an outpatient (5) Right upper quadrant pain: Code(s): R10.11 - Right upper quadrant pain Status: Chronic Assessment and Plan: He had a CT scan w/o contrast today and there was no CT correlation for the patient's symptoms Continue with Vicodin and Flexeril for now V/Q scan noted GI consulted, EGD and colonoscopy on hold for now Renal scan neg (6) Tobacco abuse: Code(s): Z72.0 - Tobacco use Status: Acute Assessment and Plan: patient stated that he is starting to cut down his cigarettes every day and is down to just a couple cigarettes a day Cessation advised (7) CKD (chronic kidney disease) stage 4, GFR 15-29 ml/min: Code(s): N18.4 - Chronic kidney disease, stage 4 (severe) Status: Acute Assessment and Plan: eGFR is only 3-->4 today Nephrology following, recommendations appreciated Follwed o/p. 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 Cr 14.8-->-->12.8-->13.4-->13.3-->13.2 today S/p IVF Plan for HD Monitor Subjective Date/time seen: 10/01/20 08:13 Pt seen and evaluated; right sided pain is better than it was Review of Systems Review of Systems: All systems reviewed & are unremarkable except as noted in HPI and below Exam Const: General: cooperative, comfortable, no acute distress, alert and awake Nutritional Appearance: average body habitus and well nourished Orientation/consciousness: oriented to person, oriented to place, oriented to time and patient oriented x3 Limitations: no limitations HENMT: Head: normal to inspection, No palpable skull fracture present, normocephalic and atraumatic Ears: hearing grossly normal bilaterally and external ears normal General nose exam: Normal external nose present and Normal nares present Face and sinus: face symmetric Mouth: Yes Normal oral and palatal mucosa present Eyes: General: appearance normal, both eyes and all related structures Alignment and Position: alignment normal Periorbital: periorbital findings normal Eyelids: eyelids normal Conjunctivae: conjunctivae normal Sclera: sclerae normal Cornea: corneas normal Pupils: Equal, round and reactive pupils present EOM: EOMs intact bilaterally Neck: Neck: full ROM, trachea midline, supple and no JVD Thyroid: thyroid normal Carotids: normal carotid upstroke Lymphatic: no lymphadenopathy noted Chest: Chest palpation & inspection: nor
--- NOTE | 2020-10-01 08:44 | PM.PNPUL ---
Progress Note: A&P Assessment and Plan (1) Pulmonary embolism: Code(s): I26.99 - Other pulmonary embolism without acute cor pulmonale Status: Acute Assessment and Plan: Patient with right-sided pleuritic and abdominal pain, elevated D-dimer, perfusion only scan with intermediate probability, negative trop, no evidence of right heart stain on echo, negative troponin and BNP 18,000 and negative lower and upper extremity Dopplers. At this time I will give the patient a tentative diagnosis of unprovoked pulmonary embolism. 09/29 I agree with continuation of IV heparin for likely pulmonary embolism and he will need at least 6 months anticoagulation. Patient cannot undergo a CT angiogram of the chest given his renal failure. If patient does initiate dialysis I would do a CT angiogram of the chest at that time. Patient is hemodynamically stable and on room air with adequate oxygenation at this time. I will order an upper extremity Doppler looking for any upper extremity DVTs. I will order cardiac echocardiogram to assess RV size, RV function and pulmonary pressures. Will order a BNP and troponin looking for evidence of heart strain. Patient with a history of lupus and rheumatoid arthritis I will order an anticardiolipin, a lupus anticoagulant and anti beta 2 glycoprotein looking for antiphospholipid syndrome. I am not convinced patient's right upper quadrant abdominal pain is due to his pulmonary embolism especially given there are no perfusion defects in his right lower lobe. Agree with continued workup for this right upper quadrant abdominal pain. 09/[address] Palmer and patient to have tunnelled catheter and then CTA of chest followed by dialysis. If he has no PE on CTA can DC heparin and proceed with GI work up per GI. If has PE will discuss with GI possibilty of DC heparin for EGD and colonoscopy. Regarding anti phospholipid syndrome work up: LA pending, Anti cardiolipin IgA, IgG and IgM pending and Anti B2 glycoprotein IgA, IgG, and IgM pending. Will follow with you. Subjective Date/time seen: 10/01/20 08:44 Interval history: 09/29 Narrative: This is a new pulmonary consult for pulmonary embolism this is a 64-year-old man with a history of lupus and rheumatoid arthritis diagnosed approximately 5-6 years ago. Patient was on hydroxychloroquine for about a year but has been off of medicines for 2-3 years. Patient has chronic renal failure with a creatinine baseline of 3.54 on 05/22/20. Approximately 1 month ago a patient had a 1 week history of right sided flank -upper abdominal pain that was worse with coughing deep breathing and hiccuping. Occasionally this sharp knife-like pain would migrate to the right shoulder patient states the pain was intermittent and resolved over about a week. Patient presents now on her 09/27/2020 with another episode of right-sided flank and upper abdominal pain that is pleuritic in nature worse with coughing, deep breathing and hiccuping. Patient states he has no shortness of breath other than he he is limited in taking deep breaths and has to take shallow breaths. Patient denied any fever, chills, rigors, phlegm production, hemoptysis. Patient denied any recent long car rides plane rides or immobility. Patient denies any family history of blood clots and has never had any blood clots himself. Patient smoked tobacco age 17-2 months ago at about 1 pack per day. For the last 5 years he has had minimal phlegm production but no hemoptysis at baseline. 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 Patient denies vaping, illicit drug use, sandblasting, sheep farm worker, professional painting or steel warping mill operator. 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 Patient was admitted with anemia, acute on chronic renal
[2020-10-01] MEDS: METOPROLOL TARTRATE 25 MG TABLET PO ×2 (09:18→21:22)
[2020-10-01] MEDS: amLODIPine BESYLATE 5 MG TABLET 10 MG PO (09:18)
[2020-10-01] MEDS: EPOETIN ALFA-EPBX 10,000 UNITS/ML VIAL 10000 UNITS SUB-Q (09:19)
[2020-10-01 12:15] LABS: IFOB Positive Control Positive; Immunochemical Fecal Occult Bl Negative (N)
--- NOTE | 2020-10-01 13:07 | WPDANESEPPF ---
Anes - Initial Pre Proc Eval Procedure: Operation Date: 10/01/20 13:30 Proposed Procedures p Insertion Tunneled Dialysis Catheter - Kavin Weeks MD Date/Time: 10/01/20 13:07 Surgeon: Micky Pre Op Diagnosis: acute chronic renal failure, anemia Patient Data Age: 64 Gender: M Height: 1.68 m Weight: 61.9 kg Last Vital Signs Temp 36.3 C L 10/01/20 04:57 Pulse 68 10/01/20 09:18 Resp 18 10/01/20 04:57 BP 151/79 H 10/01/20 04:57 Pulse Ox 96 10/01/20 04:57 Allergies Allergy/AdvReac Type Severity Reaction Status Date / Time No Known Allergies Allergy Verified 09/29/20 17:56 Home Medications Medication Instructions Recorded Confirmed Type amlodipine 10 mg PO DAILY 09/27/20 History Laboratory Tests 09/30/20 09/30/20 10/01/20 15:16 22:59 05:08 WBC 6.9 K/mm3 K/mm3 (4.5-10.0) RBC 2.48 M/mm3 L M/mm3 (4.6-6.20) Hgb 7.4 g/dL L g/dL (14.0-18.0) Hct 22.6 % L % (42.0-52.0) MCV 91.1 fl fl (80-100) MCH 29.8 pg pg (26-34) MCHC 32.7 g/dl g/dl (32-36) RDW 13.2 % % (11.5-14.5) Plt Count 166 k/mm3 k/mm3 (150-375) MPV 9.0 fl fl (7.4-10.4) Immature Gran % (Auto) 0.3 % % (0-0.5) Neut % (Auto) 55.9 % % (45.5-73.1) Lymph % (Auto) 23.7 % % (18.3-44.2) [place] % (Auto) 6.2 % % (2.6-8.5) Eos % (Auto) 13.5 % H % (0-4.4) Baso % (Auto) 0.4 % % (0.2-1.2) Lymph # (Auto) 1.63 K/mm3 K/mm3 (0.9-3.2) [place] # (Auto) 0.4 K/mm3 K/mm3 (0.1-0.6) Eos # (Auto) 0.9 K/mm3 H K/mm3 (0-0.3) Baso # (Auto) 0.0 K/mm3 K/mm3 (0.0-0.1) Abs Immat Gran (auto) 0.02 K/mm3 K/mm3 (0.00-0.031) Absolute Neuts (auto) 3.9 K/mm3 K/mm3 (1.3-6.7) Absolute Nucleated RBC 0.0 K/mm3 K/mm3 (0.0-0.012) Nucleated RBC % 0.0 % % (0.0-0.2) APTT 67.8 SECONDS H SECONDS 86.4 SECONDS H SECONDS (22.3-36.8) (22.3-36.8) Sodium Potassium Chloride Carbon Dioxide Anion Gap BUN Creatinine Estim Creat Clear Calc Estimated GFR Glucose Calcium Phosphorus Albumin Stl Occult Blood (IFOB) 10/01/20 10/01/20 10/01/20 05:08 05:08 08:44 WBC RBC Hgb Hct MCV MCH MCHC RDW Plt Count MPV Immature Gran % (Auto) Neut % (Auto) Lymph % (Auto) [place] % (Auto) Eos % (Auto) Baso % (Auto) Lymph # (Auto) [place] # (Auto) Eos # (Auto) Baso # (Auto) Abs Immat Gran (auto) Absolute Neuts (auto) Absolute Nucleated RBC Nucleated RBC % APTT 86.5 SECONDS H SECONDS (22.3-36.8) Sodium 140 mmol/L mmol/L (137-145) Potassium 4.1 mmol/L mmol/L (3.4-5.0) Chloride 107 mmol/L mmol/L (98-107) Carbon Dioxide 21 mmol/L L mmol/L (22-30) Anion Gap 12 mmol/L mmol/L (8-16) BUN 87 mg/dL H mg/dL (9-20) Creatinine 13.20 mg/dL H mg/dL (0.7-1.3) Estim Creat Clear Calc 5 ml/min ml/min Estimated GFR 4 L (59 - ) Glucose 89 mg/dL mg/dL (65-110) Calcium 6.9 mg/dL L mg/dL (8.4-10.2) Phosphorus 11.0 mg/dL H mg/dL (2.5-4.5) Albumin 3.2 g/dL L g/dL (3.5-5.1) Stl Occult Blood (IFOB) Negative (N) Patient hx anesthesia problems: none Family hx anesthesia problems: none PMFSH Past Medical History Medical History (Updated 09/30/20 @ 10:31 by Neal Rebollar MD) Acute on chronic
[2020-10-01] MEDS: CENTRAL LINE FLUSH 20 ML IV PUSH (13:13)
[2020-10-01] MEDS: SODIUM CHLORIDE 0.9% IV 500 ML 30 ML IV CONT (13:30)
[2020-10-01 13:43] LABS: Albumin 2.6 g/dL (3.8-4.8); Alpha 1 Globulin 0.5 g/dL (0.2-0.3); Alpha 2 Globulin 0.9 g/dL (0.5-0.9); Beta 1 Globulin 0.4 g/dL (0.4-0.6); Gamma Globulin 0.9 g/dL (0.8-1.7); Protein, Total 5.6 g/dL (6.1-8.1)
--- NOTE | 2020-10-01 13:52 | WPDHPUPDATE1 ---
History and Physical Update Update Date/Time: 10/01/20 13:52 patient in need of tunneled central venous catheter due for dialysis. I discussed the procedure with him. We will go ahead this afternoon. History and Physical has been reviewed, including an updated exam of the patient. There are NO changes in the patient's condition. Risks, benefits, and alternatives have been discussed and questions answered. Patient agrees to proceed with procedure.
[2020-10-01] MEDS: ceFAZolin 2 GM/D5W 50 ML 2 GM/50 ML BAG IVPB (13:57)
--- NOTE | 2020-10-01 14:04 | WPDGIPROGNO ---
Progress Note: A&P Assessment and Plan (1) Right upper quadrant pain: Code(s): R10.11 - Right upper quadrant pain Status: Chronic Assessment and Plan: Patient with recurrent right upper quadrant abdominal pain. Lung scan suggest potential for pulmonary embolism. For this reason GI endoscopy canceled while he is anticoagulated. I understand that a more specific scan will be performed. I have discussed this case with Pulmonary Service. Consider a GI endoscopy on Tuesday pending results of additional studies. We will follow with you in the antrum. No active bleeding identified and it is uncertain that this pain is related to GI tract pain (2) Chronic kidney disease, stage IV (severe): Code(s): N18.4 - Chronic kidney disease, stage 4 (severe) Status: Chronic Assessment and Plan: chronic kidney disease most likely etiology for patient's anemia. Dialysis to be started shortly his my understanding. (3) Lupus: Code(s): M32.9 - Systemic lupus erythematosus, unspecified Status: Chronic (4) Anemia: Code(s): D64.9 - Anemia, unspecified Status: Acute Assessment and Plan: Anemia identified. No evidence for GI blood loss. Most likely related to kidney disease. Potentially related to his history of lupus. Will continue monitor conservatively at this point. (5) Pulmonary embolism: Code(s): I26.99 - Other pulmonary embolism without acute cor pulmonale Status: Acute Assessment and Plan: Pulmonary embolism suggested by recent lung scan. Pulmonary service now following. Because of heparin drip GI endoscopy deferred. Consider repeat attempted GI endoscopy while off heparin on Tuesday. This will be deferred until results of additional workup is available. Subjective Date/time seen: 10/01/20 14:04 patient states pain is better today. Pain now in the right upper quadrant of the abdomen but feels some pain radiating towards the right chest and shoulder. Apparently had perfusion scan that showed possible pulmonary embolus. Now on a heparin drip because of heparin drip GI endoscopy was canceled on Tuesday. Patient states pain is worse on deep breathing. No relation to diet or bowel movements. Review of Systems Review of Systems: All systems reviewed & are unremarkable except as noted in HPI and below Exam Narrative: Exam Narrative: Physical exam reveals patient to be alert comfortable at rest. Tenderness at the right rib margin is noted. No masses elicited. Lungs appear clear. No tenderness in the left chest. Objective Data Vital Signs Vital Signs: Vital Signs - 24 hr 09/30/20 21:07 09/30/20 21:10 10/01/20 04:57 Temperature 97.2 F L 97.4 F L Pulse Rate 72 69 57 L Respiratory Rate 20 18 Blood Pressure 149/83 H 151/79 H Pulse Oximetry 95 96 10/01/20 09:18 Temperature Pulse Rate 68 Respiratory Rate Blood Pressure Pulse Oximetry Intake/Output Intake/Output: Intake & Output 09/28/20 09/29/20 09/30/20 10/01/20 23:59 23:59 23:59 23:59 Intake Total 2950 2175 2218 970 Output Total 1220 2150 2700 800 Balance 1730 25 -152 170 Meds/Results Medications: Active Medications Generic Name Dose Route Start Last Admin Trade Name Freq PRN Reason Stop Dose Admin Hydrocodone Bitart/Acetaminophen 1 tab 09/28/20 08:37 09/30/20 18:05 Hydrocodone/Acetaminophen (*Crx) 5-325 Mg Tablet PO 1 tab Q6H PRN Administration Pain Rated 4-6 Amlodipine Besylate 10 mg 09/29/20 09:00 10/01/20 09:18 Amlodipine Besylate 5 Mg Tablet PO 10 mg DAILY CANDIDA Administration Cyclobenzaprine HCl 5 mg 09/27/20 18:40 09/28/20 21:40 Cyclobenzaprine Hcl 5 Mg Tablet PO 5 mg Q8H PRN Administration Muscle Spasm Dextrose 12.5 gm 09/29/20 08:30 Dextrose 50% 25 Gm/50 Ml Syringe IV PUSH PRN PRN Hypoglycemia Protocol Epoetin Andreas-epbx 10,000 units 09/29/20 09:00 10/01/20 09:19 Epoetin Andreas
[2020-10-01] MEDS: HEPARIN SODIUM 5,000 UNITS/ML VIAL 5000 UNITS IRRIGATION (14:12)
[2020-10-01] MEDS: LIDO 1%/EPINEPHRINE 1:100,000 20 ML VIAL 7 ML INFILTRATE (14:12)
[2020-10-01] MEDS: HEPARIN SODIUM, PORCINE 10,000 UNITS/10 ML VIAL 5000 UNITS IRRIGATION (14:45)
--- NOTE | 2020-10-01 15:22 | W.PM.PROC2 ---
Procedure Note - Detailed Date of Procedure 10/01/20 Pre-op Diagnosis acute chronic renal failure, anemia Post-op Diagnosis same Procedure Performed Placement tunneled Dura Flow central venous catheter under fluoroscopy right internal jugular position Surgeon Kavin Weeks MD Taxation Accountant franco trujillo [employer]ATOR Anesthesia MAC and local Indications patient is a 64-year-old man who has end-stage renal disease. I was asked to place a tunneled central venous catheter for dialysis by his human services case manager. He is taken to surgery for this purpose. Findings Tip of the catheter was at the distal SVC right atrial junction. Description of Procedure Patient was taken to surgery and the right neck and right upper chest were prepped and draped. Local anesthesia was infiltrated along the medial border the sternocleidomastoid muscle on the right side in the upper neck. Several punctures of venous blood were made but the guidewire would not pass. These were probably superficial veins. Eventually a deep cannulation of obviously venous blood was achieved and a guidewire passed easily and down to the superior vena cava. This was confirmed by C-arm fluoroscopy. I then measured the length of catheter that would be needed and the general position that the tip would need to lie I. A 36cm Dura Flow catheter was chosen. I mapped the course of the dura flow catheter from the subclavian position on up the lateral right neck and then exiting the same site as the guidewire was exiting. Counter incisions were marked on the neck. Local was infiltrated over each counter incision. The incisions were then made and the dura flow catheter was tunneled from the subclavian position up the right neck and out the same incision that the guidewire was exiting. Using C-arm fluoroscopy, I then passed serial dilators over the guidewire. The dilator and sheath were then passed over the guidewire under fluoroscopy as well. I removed the guidewire and the introducer. I passed the Dura Flow catheter into the sheath and on down into the superior vena cava. The sheath was then removed. I changed the positioning of the catheter in the neck slightly so that there were no kinks and a smooth curve as the guidewire turned to go into the internal jugular vein. Once in good position, I checked with fluoroscopy and the curved and the guidewire looked quite good with no evidence of any kinks at all. The tip of the guidewire was in the SVC right atrial junction. Both ports aspirated blood easily and flushed easily with heparin. Final flush was given through each port and each was then capped. I then closed the counter incisions with subcuticular interrupted 4 0 Vicryl suture. The Dura Flow catheter was sutured to the skin with 3 0 nylon. A sterile dressing was applied over the exit site of the dura flow catheter. Patient was then taken from the operating room to recovery in good condition. Sponge and needle counts were correct x2. Estimated Blood Loss 100 Urine Output 800 Drains No Packing No Pathology none sent Complications None Condition stable Disposition PACU
--- NOTE | 2020-10-01 15:45 | SUR.PHASEI ---
2684 sbar faxed floor notified
--- NOTE | 2020-10-01 16:00 | SUR.PHASEI ---
1515 hematoma noted on rt neck. dr quijano aware of this and wants ice applied to site. pt alertx4, vss, on room air. pt doing ok, no breathing difficulties. 1600 hematoma is noted, a little larger, but pt doing ok with this. vss, pt remains on room air, no difficulties breathing
[2020-10-01 16:05] LABS: Chloride Rand Ur 81 mmol/L (32-290); Chloride/Creatinine Rand Ur 140 (23-275); Creatinine Random Urine 58 mg/dL (20-320)
[2020-10-01] MEDS: fentaNYL CITRATE INJ (*CRX) 100 MCG/2 ML VIAL 25 MCG IV PUSH ×3 (16:32→16:47)
--- NOTE | 2020-10-01 17:55 | PC.NURSE ---
Patient to CTA per bed. Patient will go directly to dialysis after CTA. Report given IV saline locked.
[2020-10-01 18:58] LABS: Hepatitis B Surface Antigen Negative (Negative)
[2020-10-01 19:17] LABS: Hepatitis B Surface Anti Res Negative; Hepatitis C Virus Antibody Negative (Negative)
[2020-10-01] MEDS: HYDROcodone/acetaminophen (*CRX) 7.5-325 MG TABLET 1 TAB PO (21:21)
[2020-10-02] VITALS (17 sets, daily range): BP systolic 136–157; BP diastolic 69–85; PULSE 51–72; RESP 16–21; TEMP 36–37.1; O2SAT 96–100
[2020-10-02 02:57] LABS: Anti Cardio Antibody IgM <2.0 MPL-U/mL (<20.0); Anti Cardiolipin Antibody IgA <2.0 APL-U/mL (<20.0); Anti Cardiolipin Antibody IgG <2.0 GPL-U/mL (<20.0)
[2020-10-02] MEDS: HYDROcodone/acetaminophen (*CRX) 7.5-325 MG TABLET 1 TAB PO ×3 (02:59→19:20)
[2020-10-02] MEDS: CENTRAL LINE FLUSH 10 ML IV PUSH ×3 (05:08→22:00)
[2020-10-02 05:12] LABS: Albumin Level 3.1 g/dL (3.5-5.1); Anion Gap 11 mmol/L (8-16); Blood Urea Nitrogen 59 mg/dL (9-20); Calcium 7.2 mg/dL (8.4-10.2); Carbon Dioxide 25 mmol/L (22-30); Chloride 103 mmol/L (98-107); Estimated CRCL calculation 6 ml/min; Estimated Glomerular Filt Rate 5; Glucose 98 mg/dL (65-110); Phosphorus 7.7 mg/dL (2.5-4.5); Sodium 139 mmol/L (137-145)
[2020-10-02 05:18] LABS: Partial Thromboplastin Time 45.1 SECONDS (22.3-36.8)
[2020-10-02] MEDS: ONDANSETRON INJ 4 MG/2 ML VIAL IV PUSH (05:49)
[2020-10-02 05:53] LABS: Basophils Percent Auto 0.6 % (0.2-1.2); Eosinophils Absolute Auto 0.6 K/mm3 (0-0.3); Eosinophils Percent Auto 8.9 % (0-4.4); Hematocrit 21.2 % (42.0-52.0); Immature Granulocyte Absolute 0.03 K/mm3 (0.00-0.031); Immature Granulocyte Percent A 0.4 % (0-0.5); Lymphocytes Absolute Auto 1.05 K/mm3 (0.9-3.2); Mean Corpuscular Hemoglobin 29.9 pg (26-34); Mean Corpuscular Volume 90.6 fl (80-100); Mean Platelet Volume 9.4 fl (7.4-10.4); Monocytes Absolute Auto 0.5 K/mm3 (0.1-0.6); Monocytes Percent Auto 7.6 % (2.6-8.5); Neutrophils Absolute Auto 4.7 K/mm3 (1.3-6.7); Neutrophils Percent Auto 67.5 % (45.5-73.1); Platelet Count Result 170 k/mm3 (150-375); Red Blood Count 2.34 M/mm3 (4.6-6.20); Red Cell Distribution Width 13.2 % (11.5-14.5)
--- NOTE | 2020-10-02 06:55 | WPDGIPROGNO ---
Progress Note: A&P Assessment and Plan (1) Right upper quadrant pain: Code(s): R10.11 - Right upper quadrant pain Status: Chronic Assessment and Plan: Patient reports his abdominal pain is resolved. We discussed proceeding with colonoscopy an EGD to assess pain as well as anemia. At this time patient refuses to progress with these until his neck pain improves. Plan to proceed with colonoscopy an EGD is electively as an outpatient. (2) Pulmonary embolism: Code(s): I26.99 - Other pulmonary embolism without acute cor pulmonale Status: Acute Assessment and Plan: CT a performed yesterday suggest some degree of pulmonary a atelectasis. No evidence for PE. I discussed with patient proceeding with GI endoscopy. However he refuses to do this until is neck is feeling better. He desires to proceed with treatment for his renal failure. He will agree to GI endoscopy as an outpatient. (3) Acute on chronic anemia: Code(s): D64.9 - Anemia, unspecified Status: Acute Assessment and Plan: Patient with anemia. Suspect this is related to kidney disease. No evidence for GI blood loss. In light of his ongoing right-sided abdominal pain and degree of anemia elective EGD will be planned as an outpatient. Patient refuses to do this is an inpatient. (4) Acute on chronic renal failure: Code(s): N17.9 - Acute kidney failure, unspecified; N18.9 - Chronic kidney disease, unspecified Status: Acute Assessment and Plan: Patient with renal insufficiency. Now status post dialysis catheter placement. Patient is somewhat uncomfortable from wound on his neck. Will defer this to surgery. Patient wishes to defer GI endoscopy until his discomfort subsides in the neck. Subjective Date/time seen: 10/02/20 06:55 Patient alert this morning complains of right neck pain and swelling after catheter placement. He reports no abdominal pain. Previous abdominal pain has resolved completely. No difficulty breathing. No shortness of breath. No coughing. Review of Systems Review of Systems: All systems reviewed & are unremarkable except as noted in HPI and below Exam Narrative: Exam Narrative: Physical exam reveals patient to be alert. He has incision on the right neck with associated swelling. Lungs are clear to auscultation and percussion. Heart is without murmur or extra sounds. Abdominal exam bowel sounds are present soft nontender with no organomegaly. Objective Data Vital Signs Vital Signs: Vital Signs - 24 hr 10/01/20 09:18 10/01/20 13:30 10/01/20 15:15 Temperature 97.2 F L 97 F L Pulse Rate 68 64 70 Respiratory Rate 16 14 Blood Pressure 167/87 H 136/85 Pulse Oximetry 100 96 10/01/20 15:30 10/01/20 15:45 10/01/20 16:00 Temperature Pulse Rate 64 61 58 L Respiratory Rate 16 13 15 Blood Pressure 132/84 138/77 Pulse Oximetry 100 95 99 10/01/20 16:15 10/01/20 16:35 10/01/20 16:50 Temperature Pulse Rate 57 L 61 54 L Respiratory Rate 12 13 10 L Blood Pressure 135/83 139/87 131/80 Pulse Oximetry 98 97 96 10/01/20 17:46 10/01/20 18:20 10/01/20 18:28 Temperature 97.5 F L 97.7 F Pulse Rate 62 64 64 Respiratory Rate 20 20 Blood Pressure 141/81 H 160/90 H 150/89 H Pulse Oximetry 96 10/01/20 18:45 10/01/20 19:00 10/01/20 19:15 Temperature Pulse Rate 68 62 62 Respiratory Rate Blood Pressure 162/86 H 155/88 H 149/86 H Pulse Oximetry 10/01/20 19:30 10/01/20 19:45 10/01/20 20:00 Temperature Pulse Rate 67 65 83 Respiratory Rate 18 Blood Pressure 158/85 H 163/91 H 159/82 H Pulse Oximetry 96 10/01/20 20:15 10/01/20 20:28 10/01/20 20:40 Temperature 98.3 F Pulse Rate 69 68 83 Respiratory Rate 18 Blood Pressure 156/84 H 160/89 H 151/79 H Pulse Oximetry 10/01/20 21:22 10/01/20 22:00 Temperature 98.8 F Pulse Rate 83 70 Respiratory Rate 18 Blood Pressure 145/78 H Pulse Oximetry 96 Intake/Outp
--- NOTE | 2020-10-02 08:06 | PM.PNNEP ---
Progress Note: A&P Assessment and Plan (1) MADDY (acute kidney injury): Code(s): N17.9 - Acute kidney failure, unspecified Status: Acute Assessment and Plan: Renal scan shows minimal perfusion to either kidney. most likely just progression of chronic disease. (2) Chronic kidney disease, stage IV (severe): Code(s): N18.4 - Chronic kidney disease, stage 4 (severe) Status: Chronic Assessment and Plan: Now end-stage renal disease. Will get another dialysis treatment today. (3) Anemia: Code(s): D64.9 - Anemia, unspecified Status: Acute Assessment and Plan: no evidence of GI bleed (guaiac negative in ER) suspect related to worsening kidney disease (?) On EPO. Iron okay. hemoglobin 7.0 today. (4) Hypertension: Qualifiers: Hypertension type: essential hypertension Qualified Code(s): I10 - Essential (primary) hypertension Code(s): I10 - Essential (primary) hypertension Status: Chronic Assessment and Plan: Blood pressure under good control right now. (5) Right upper quadrant pain: Code(s): R10.11 - Right upper quadrant pain Status: Chronic Assessment and Plan: chronic issue for the last year or so CT negative. CTA for PE protocol is negative. His pain is gone now after dialysis. I wonder if this was just uremic pleurisy. His CAT scan also showed a pericardial effusion which is probably also from the poor kidney function. Will continue dialysis. Subjective Date/time seen: 10/02/20 08:06 Interval history: Patient is upset. The PermCath on the right side is very uncomfortable. He has stitches along the course of the catheter. He had significant amount of bleeding in the OR and the stitches were to keep him from bleeding. We discussed this at length. I will let Dr. Weeks know about his discomfort. He is off the blood thinners now. The patient's right-sided pain is gone now. He can push on his belly cough take deep breaths and twisted his torso without any discomfort whatsoever. Review of Systems Cardiovascular: Cardiovascular: Reports no additional cardiovascular complaints Respiratory: Respiratory: Reports no additional respiratory complaints Gastrointestinal: Gastrointestinal: Reports no additional gastrointestinal complaints Genitourinary: Genitourinary: Reports no additional male genitourinary complaints Exam Narrative: Exam Narrative: WDWN in NAD skin no rash head ncat lungs clear cor reg no rub abd BS+ nontender and soft ext no edema. Dialysis catheter tunnel looks okay. His neck movement is severely restricted because of the stitches. Objective Data Vital Signs Vital Signs: Vital Signs - 24 hr 10/01/20 09:18 10/01/20 13:30 10/01/20 15:15 Temperature 36.2 C L 36.1 C L Pulse Rate 68 64 70 Respiratory Rate 16 14 Blood Pressure 167/87 H 136/85 Pulse Oximetry 100 96 10/01/20 15:30 10/01/20 15:45 10/01/20 16:00 Temperature Pulse Rate 64 61 58 L Respiratory Rate 16 13 15 Blood Pressure 132/84 138/77 Pulse Oximetry 100 95 99 10/01/20 16:15 10/01/20 16:35 10/01/20 16:50 Temperature Pulse Rate 57 L 61 54 L Respiratory Rate 12 13 10 L Blood Pressure 135/83 139/87 131/80 Pulse Oximetry 98 97 96 10/01/20 17:46 10/01/20 18:20 10/01/20 18:28 Temperature 36.4 C L 36.5 C Pulse Rate 62 64 64 Respiratory Rate 20 20 Blood Pressure 141/81 H 160/90 H 150/89 H Pulse Oximetry 96 10/01/20 18:45 10/01/20 19:00 10/01/20 19:15 Temperature Pulse Rate 68 62 62 Respiratory Rate Blood Pressure 162/86 H 155/88 H 149/86 H Pulse Oximetry 10/01/20 19:30 10/01/20 19:45 10/01/20 20:00 Temperature Pulse Rate 67 65 83 Respiratory Rate 18 Blood Pressure 158/85 H 163/91 H 159/82 H Pulse Oximetry 96 10/01/20 20:15 10/01/20 20:28 10/01/20 20:40 Temperature 36.8 C Pulse Rate 69 68 83 Respiratory Rate 18
--- NOTE | 2020-10-02 08:31 | PM.IMPN ---
Progress Note: A&P Assessment and Plan (1) Anemia: Code(s): D64.9 - Anemia, unspecified Status: Acute Assessment and Plan: GI following, recommendations appreciated He was supposed to have colonoscopy as an outpatient but could not continue his breath is he felt nauseated. stool for occult blood. Iron level is low which is 29. TIBC is 320 Hematology following, recommendations appreciated Hemoglobin today 7.0-->7.5-->7.4-->7.0 today S/p 1 unit of PRBC iron supplement and Epogen initiated per hemonc, will f/u o/p (2) Elevated d-dimer: Code(s): R79.89 - Other specified abnormal findings of blood chemistry Status: Acute Assessment and Plan: V/Q scan with PE Heparin gtt initiated Blast Furnace Operator following, recommendations appreciated ECHO-->Left ventricular systolic function is normal, estimated at 60-65%; left ventricular diastolic function is abnormal Doppler ultrasound has been found to be negative for DVT Follow labs for antiphospholipid syndrome CTA showed no PE Hepain gtt d/c'd (3) Hypertension: Qualifiers: Hypertension type: essential hypertension Qualified Code(s): I10 - Essential (primary) hypertension Code(s): I10 - Essential (primary) hypertension Status: Chronic Assessment and Plan: Continue with home medications, amlodipine (4) Lupus: Code(s): M32.9 - Systemic lupus erythematosus, unspecified Status: Chronic Assessment and Plan: He was supposed to see rheumatology as an outpatient (5) Right upper quadrant pain: Code(s): R10.11 - Right upper quadrant pain Status: Chronic Assessment and Plan: Resolved He had a CT scan w/o contrast today and there was no CT correlation for the patient's symptoms Continue with Vicodin and Flexeril for now V/Q scan noted CT neg GI following, recommendations appreciaed Plan for EGD and colonoscopy outpatient Renal scan neg for infarct (6) Tobacco abuse: Code(s): Z72.0 - Tobacco use Status: Acute Assessment and Plan: patient stated that he is starting to cut down his cigarettes every day and is down to just a couple cigarettes a day Cessation advised (7) CKD (chronic kidney disease) stage 4, GFR 15-29 ml/min: Code(s): N18.4 - Chronic kidney disease, stage 4 (severe) Status: Acute Assessment and Plan: eGFR is only 3-->4-->5 today Nephrology following, recommendations appreciated Follwed o/p. 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 Cr 14.8-->-->12.8-->13.4-->13.3-->13.2-->10.3 today S/p IVF HD yesterday and again today Monitor Subjective Date/time seen: 10/02/20 08:31 Interval history: pt seen and evaluated; complains of neck pain hd cath site;denies any SOB, CP, right sided pain has subsided Review of Systems Review of Systems: All systems reviewed & are unremarkable except as noted in HPI and below Exam Const: General: cooperative, comfortable, no acute distress, alert and awake Nutritional Appearance: average body habitus and well nourished Orientation/consciousness: oriented to person, oriented to place, oriented to time and patient oriented x3 Limitations: no limitations HENMT: Head: normal to inspection, No palpable skull fracture present, normocephalic and atraumatic Ears: hearing grossly normal bilaterally and external ears normal General nose exam: Normal external nose present and Normal nares present Face and sinus: face symmetric Mouth: Yes Normal oral and palatal mucosa present Eyes: Eyelids: eyelids normal Conjunctivae: conjunctivae normal Sclera: sclerae normal EOM: EOMs intact bilaterally Neck: Neck: trachea midline Other: limited ROM o neck Chest: Chest palpation & inspection: normal inspection of the chest Resp: Effort & Inspection: normal respiratory effort Auscultation: clear to auscultation bilaterally Percussion: percussion normal Car
--- NOTE | 2020-10-02 09:49 | PM.PNPUL ---
Progress Note: A&P Assessment and Plan (1) Pulmonary embolism: Code(s): I26.99 - Other pulmonary embolism without acute cor pulmonale Status: Acute Assessment and Plan: Patient with right-sided pleuritic and abdominal pain, elevated D-dimer, perfusion only scan with intermediate probability, negative trop, no evidence of right heart stain on echo, negative troponin and BNP 18,000 and negative lower and upper extremity Dopplers. At this time I will give the patient a tentative diagnosis of unprovoked pulmonary embolism. 09/29 I agree with continuation of IV heparin for likely pulmonary embolism and he will need at least 6 months anticoagulation. Patient cannot undergo a CT angiogram of the chest given his renal failure. If patient does initiate dialysis I would do a CT angiogram of the chest at that time. Patient is hemodynamically stable and on room air with adequate oxygenation at this time. I will order an upper extremity Doppler looking for any upper extremity DVTs. I will order cardiac echocardiogram to assess RV size, RV function and pulmonary pressures. Will order a BNP and troponin looking for evidence of heart strain. Patient with a history of lupus and rheumatoid arthritis I will order an anticardiolipin, a lupus anticoagulant and anti beta 2 glycoprotein looking for antiphospholipid syndrome. I am not convinced patient's right upper quadrant abdominal pain is due to his pulmonary embolism especially given there are no perfusion defects in his right lower lobe. Agree with continued workup for this right upper quadrant abdominal pain. 09/[address] Palmer and patient to have tunnelled catheter and then CTA of chest followed by dialysis. If he has no PE on CTA can DC heparin and proceed with GI work up per GI. If has PE will discuss with GI possibilty of DC heparin for EGD and colonoscopy. 10/01 No PE by CTA on 09/30 and off heparin now and no abdomihnal pain. Regarding anti phospholipid syndrome work up: LA pending, Anti cardiolipin IgA, IgG and IgM negative and Anti B2 glycoprotein IgA, IgG, and IgM pending. Will sign off, no need for pulmonary follow up, call with questions. Subjective Date/time seen: 10/02/20 09:49 Interval history: 09/29 Narrative: This is a new pulmonary consult for pulmonary embolism this is a 64-year-old man with a history of lupus and rheumatoid arthritis diagnosed approximately 5-6 years ago. Patient was on hydroxychloroquine for about a year but has been off of medicines for 2-3 years. Patient has chronic renal failure with a creatinine baseline of 3.54 on 05/22/20. Approximately 1 month ago a patient had a 1 week history of right sided flank -upper abdominal pain that was worse with coughing deep breathing and hiccuping. Occasionally this sharp knife-like pain would migrate to the right shoulder patient states the pain was intermittent and resolved over about a week. Patient presents now on her 09/27/2020 with another episode of right-sided flank and upper abdominal pain that is pleuritic in nature worse with coughing, deep breathing and hiccuping. Patient states he has no shortness of breath other than he he is limited in taking deep breaths and has to take shallow breaths. Patient denied any fever, chills, rigors, phlegm production, hemoptysis. Patient denied any recent long car rides plane rides or immobility. Patient denies any family history of blood clots and has never had any blood clots himself. Patient smoked tobacco age 17-2 months ago at about 1 pack per day. For the last 5 years he has had minimal phlegm production but no hemoptysis at baseline. 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 Patient denies vaping, illicit drug use, sandblasting, soda worker, professional painting or steel supervisor [employer]. 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
[2020-10-02 11:03] LABS: Haptoglobin 369 mg/dL (43-212)
--- NOTE | 2020-10-02 11:58 | PM.EVENT ---
Event Note Event Note Event Note: patient is on dialysis and tolerating it well. He was seen at 11:40 a.m.
[2020-10-02] MEDS: METOPROLOL TARTRATE 25 MG TABLET PO ×2 (13:46→20:39)
[2020-10-02] MEDS: amLODIPine BESYLATE 5 MG TABLET 10 MG PO (13:46)
[2020-10-02 16:07] LABS: Soluble Transferrin Receptor 0.92 mg/L (0.76-1.76)
--- NOTE | 2020-10-02 17:05 | PM.PNGS ---
Progress Note: A&P Assessment and Plan (1) Chronic kidney disease, stage IV (severe): Code(s): N18.4 - Chronic kidney disease, stage 4 (severe) Status: Chronic Assessment and Plan: Patient has moderate right neck hematoma. His procedure went well but he was fully anticoagulated at the time of the procedure on heparin. We had only been able to stop the heparin for short period of time. Consequently he developed hematoma. I explained to him the reason for this and that it will resolve. Symptoms should improve significantly in the next 3-5 days and eventually it will completely resolve. Call if we can be of any further assistance. Subjective Subjective Date/Time Seen: 10/02/20 17:05 Post Op day: 1 Patient reports: other ( Complains of right neck pain, swelling, stiffness) Interval history: hurts to turn his neck to the right Exam Neck: Neck: trachea midline, tender and other ( moderate right neck hematoma, catheter in good position.) Objective Data Vital Signs Vital Signs: Vital Signs - 24 hr 10/01/20 17:46 10/01/20 18:20 10/01/20 18:28 Temperature 36.4 C L 36.5 C Pulse Rate 62 64 64 Respiratory Rate 20 20 Blood Pressure 141/81 H 160/90 H 150/89 H Pulse Oximetry 96 10/01/20 18:45 10/01/20 19:00 10/01/20 19:15 Temperature Pulse Rate 68 62 62 Respiratory Rate Blood Pressure 162/86 H 155/88 H 149/86 H Pulse Oximetry 10/01/20 19:30 10/01/20 19:45 10/01/20 20:00 Temperature Pulse Rate 67 65 83 Respiratory Rate 18 Blood Pressure 158/85 H 163/91 H 159/82 H Pulse Oximetry 96 10/01/20 20:15 10/01/20 20:28 10/01/20 20:40 Temperature 36.8 C Pulse Rate 69 68 83 Respiratory Rate 18 Blood Pressure 156/84 H 160/89 H 151/79 H Pulse Oximetry 10/01/20 21:22 10/01/20 22:00 10/02/20 06:00 Temperature 37.1 C 36.9 C Pulse Rate 83 70 72 Respiratory Rate 18 18 Blood Pressure 145/78 H 136/74 Pulse Oximetry 96 96 10/02/20 09:50 10/02/20 10:00 10/02/20 10:15 Temperature 36.9 C Pulse Rate 60 69 56 L Respiratory Rate 16 Blood Pressure 157/81 H 149/85 H 139/79 Pulse Oximetry 10/02/20 10:30 10/02/20 10:45 10/02/20 11:00 Temperature Pulse Rate 59 L 57 L 61 Respiratory Rate Blood Pressure 145/84 H 144/80 H 140/79 Pulse Oximetry 10/02/20 11:15 10/02/20 11:30 10/02/20 11:45 Temperature Pulse Rate 57 L 60 62 Respiratory Rate Blood Pressure 138/80 143/81 H 146/80 H Pulse Oximetry 10/02/20 12:00 10/02/20 12:15 10/02/20 12:30 Temperature Pulse Rate 60 51 L 55 L Respiratory Rate Blood Pressure 142/81 H 140/75 145/82 H Pulse Oximetry 10/02/20 12:37 Temperature 36.8 C Pulse Rate 55 L Respiratory Rate 16 Blood Pressure 145/82 H Pulse Oximetry Intake/Output Intake/Output: Intake & Output 09/29/20 09/30/20 10/01/20 10/02/20 23:59 23:59 23:59 23:59 Intake Total 2175 2218 1660 840 Output Total 2150 2700 3400 1999 Balance 54 -531 -3153 -6357 Meds/Results Medications: Active Medications Generic Name Dose Route Start Last Admin Trade Name Freq PRN Reason Stop Dose Admin Acetaminophen 500 mg 10/01/20 17:07 Acetaminophen 500 Mg Tablet PO Q6H PRN Mild Pain (1-3) or Fever Hydrocodone Bitart/Acetaminophen 1 tab 09/28/20 08:37 09/30/20 18:05 Hydrocodone/Acetaminophen (*Crx) 5-325 Mg Tablet PO 1 tab Q6H PRN Administration Pain Rated 4-6 Hydrocodone Bitart/Acetaminophen 1 tab 10/02/20 08:31 Hydrocodone/Acetaminophen (*Crx) 7.5-325 Mg Tablet PO Q6H PRN Pain Rated 7-10 Amlodipine Besylate 10 mg 09/29/20 09:00 10/02/20 13:46 Amlodipine Besylate 5 Mg Tablet PO 10 mg DAILY CANDIDA Administration Cyclobenzaprine HCl 5 mg 09/27/20 18:40 09/28/20 21:40 Cyclobenzaprine Hcl 5 Mg Tablet PO 5 mg Q8H PRN Administration Muscle Spasm Dextrose 12.5 gm 09/29/20 08:30 Dextrose 50% 25 Gm/50 Ml Syringe IV PUSH PRN PRN Hypoglyce
[2020-10-02 20:39] LABS: Hexagonal Phase Confirm Positive (Negative); Lupus dRVVT Confirmation Negative (Negative)
[2020-10-02 21:12] LABS: Lupus dRVVT 1:1 Mix Interpreta Not Indicated; Lupus dRVVT Screen 49 sec (<=45); PTT-LA Screen 66 sec (<=40)
[2020-10-03] VITALS (12 sets, daily range): BP systolic 139–169; BP diastolic 64–92; PULSE 51–109; RESP 18–20; TEMP 36.6–37; O2SAT 96–98
[2020-10-03] MEDS: CENTRAL LINE FLUSH 10 ML IV PUSH (05:03)
[2020-10-03 05:27] LABS: Partial Thromboplastin Time 47.2 SECONDS (22.3-36.8)
[2020-10-03 05:42] LABS: Albumin Level 3.1 g/dL (3.5-5.1); Anion Gap 11 mmol/L (8-16); Blood Urea Nitrogen 42 mg/dL (9-20); Calcium 7.8 mg/dL (8.4-10.2); Carbon Dioxide 25 mmol/L (22-30); Chloride 105 mmol/L (98-107); Estimated CRCL calculation 8 ml/min; Estimated Glomerular Filt Rate 6; Glucose 90 mg/dL (65-110); Phosphorus 6.6 mg/dL (2.5-4.5); Potassium 4.1 mmol/L (3.4-5.0); Sodium 141 mmol/L (137-145)
[2020-10-03] MEDS: METOPROLOL TARTRATE 25 MG TABLET PO (09:09)
--- NOTE | 2020-10-03 09:09 | PM.IMPN ---
Progress Note: A&P Assessment and Plan (1) Anemia: Code(s): D64.9 - Anemia, unspecified Status: Acute Assessment and Plan: GI following, recommendations appreciated He was supposed to have colonoscopy as an outpatient but could not continue his breath is he felt nauseated. stool for occult blood. Iron level is low which is 29. TIBC is 320 Hematology following, recommendations appreciated Hemoglobin today 7.0-->7.5-->7.4-->7.0 today S/p 1 unit of PRBC iron supplement and Epogen initiated per hemonc, will f/u o/p (2) Elevated d-dimer: Code(s): R79.89 - Other specified abnormal findings of blood chemistry Status: Acute Assessment and Plan: V/Q scan with PE Heparin gtt initiated [employer] following, recommendations appreciated ECHO-->Left ventricular systolic function is normal, estimated at 60-65%; left ventricular diastolic function is abnormal Doppler ultrasound has been found to be negative for DVT Follow labs for antiphospholipid syndrome-->per pulm: Regarding anti phospholipid syndrome work up: LA pending, Anti cardiolipin IgA, IgG and IgM negative and Anti B2 glycoprotein IgA, IgG, and IgM pending. Will sign off, no need for pulmonary follow up, call with questions. CTA showed no PE Hepain gtt d/c'd (3) Hypertension: Qualifiers: Hypertension type: essential hypertension Qualified Code(s): I10 - Essential (primary) hypertension Code(s): I10 - Essential (primary) hypertension Status: Chronic Assessment and Plan: Continue with home medications, amlodipine (4) Lupus: Code(s): M32.9 - Systemic lupus erythematosus, unspecified Status: Chronic Assessment and Plan: He was supposed to see rheumatology as an outpatient, recommend at d/c Follow labs (5) Right upper quadrant pain: Code(s): R10.11 - Right upper quadrant pain Status: Chronic Assessment and Plan: Resolved He had a CT scan w/o contrast today and there was no CT correlation for the patient's symptoms Continue with Vicodin and Flexeril for now V/Q scan noted CT neg GI following, recommendations appreciaed Plan for EGD and colonoscopy outpatient Renal scan neg for infarct (6) Tobacco abuse: Code(s): Z72.0 - Tobacco use Status: Acute Assessment and Plan: patient stated that he is starting to cut down his cigarettes every day and is down to just a couple cigarettes a day Cessation advised (7) CKD (chronic kidney disease) stage 4, GFR 15-29 ml/min: Code(s): N18.4 - Chronic kidney disease, stage 4 (severe) Status: Acute Assessment and Plan: eGFR is only 3-->4-->5 today Nephrology following, recommendations appreciated Follwed o/p. 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 Hr Review of Systems Review of Systems: All systems reviewed & are unremarkable except as noted in HPI and below Exam Const: General: cooperative, comfortable, no acute distress, alert and awake Nutritional Appearance: average body habitus and well nourished Orientation/consciousness: oriented to person, oriented to place, oriented to time and patient oriented x3 Limitations: no limitations HENMT: Head: normal to inspection, No palpable skull fracture present, normocephalic and atraumatic Ears: hearing grossly normal bilaterally and external ears normal General nose exam: Normal external nose present and Normal nares present Face and sinus:
[2020-10-03] MEDS: amLODIPine BESYLATE 5 MG TABLET 10 MG PO (09:10)
[2020-10-03] MEDS: EPOETIN ALFA-EPBX 10,000 UNITS/ML VIAL 10000 UNITS SUB-Q (09:12)
--- NOTE | 2020-10-03 12:27 | PM.PNNEP ---
Progress Note: A&P Assessment and Plan (1) MADDY (acute kidney injury): Code(s): N17.9 - Acute kidney failure, unspecified Status: Acute Assessment and Plan: Renal scan shows minimal perfusion to either kidney. most likely just progression of chronic disease. (2) Chronic kidney disease, stage IV (severe): Code(s): N18.4 - Chronic kidney disease, stage 4 (severe) Status: Chronic Assessment and Plan: Now end-stage renal disease. Will get another dialysis treatment today. (3) Anemia: Code(s): D64.9 - Anemia, unspecified Status: Acute Assessment and Plan: On EPO. Iron okay. hemoglobin 7.0 Yesterday (4) Hypertension: Qualifiers: Hypertension type: essential hypertension Qualified Code(s): I10 - Essential (primary) hypertension Code(s): I10 - Essential (primary) hypertension Status: Chronic Assessment and Plan: Blood pressure under good control right now. (5) Right upper quadrant pain: Code(s): R10.11 - Right upper quadrant pain Status: Chronic Assessment and Plan: improved with initiation of dialysis Subjective Date/time seen: 10/03/20 12:27 Interval history: patient is much calmer today. Dr. Weeks went by and reassured him that his neck is going to get better. And in fact, The patient can move his neck better today. he is on dialysis and tolerating well. He was seen at 1145. Blood pressure is doing well. Exam Narrative: Exam Narrative: WDWN in NAD skin no rash head ncat lungs clear cor reg no rub abd BS+ nontender and soft ext no edema. Dialysis catheter tunnel looks okay. His neck movement is Much better today. Hematoma is better. Objective Data Vital Signs Vital Signs: Vital Signs - 24 hr 10/02/20 12:30 10/02/20 12:37 10/02/20 14:10 Temperature 36.8 C 36.5 C Pulse Rate 55 L 55 L 56 L Respiratory Rate 16 18 Blood Pressure 145/82 H 145/82 H 139/69 Pulse Oximetry 98 10/02/20 20:39 10/02/20 22:00 10/03/20 02:00 Temperature 37.1 C 36.9 C Pulse Rate 64 69 59 L Respiratory Rate 21 H 20 Blood Pressure 138/77 141/79 H Pulse Oximetry 100 98 10/03/20 06:00 10/03/20 09:09 10/03/20 10:15 Temperature 36.9 C 36.7 C Pulse Rate 55 L 72 61 Respiratory Rate 20 18 Blood Pressure 149/64 H 164/70 H Pulse Oximetry 98 10/03/20 10:30 10/03/20 11:30 Temperature Pulse Rate 67 52 L Respiratory Rate Blood Pressure 169/91 H 156/86 H Pulse Oximetry Intake/Output Intake/Output: Intake & Output 09/30/20 10/01/20 10/02/20 10/03/20 23:59 23:59 23:59 23:59 Intake Total 2218 1660 1890 840 Output Total 2700 3400 2400 400 Balance -482 -1740 -510 440 Meds/Results Medications: Active Medications Generic Name Dose Route Start Last Admin Trade Name Freq PRN Reason Stop Dose Admin Acetaminophen 500 mg 10/01/20 17:07 Acetaminophen 500 Mg Tablet PO Q6H PRN Mild Pain (1-3) or Fever Hydrocodone Bitart/Acetaminophen 1 tab 09/28/20 08:37 09/30/20 18:05 Hydrocodone/Acetaminophen (*Crx) 5-325 Mg Tablet PO 1 tab Q6H PRN Administration Pain Rated 4-6 Hydrocodone Bitart/Acetaminophen 1 tab 10/02/20 08:31 10/02/20 19:20 Hydrocodone/Acetaminophen (*Crx) 7.5-325 Mg Tablet PO 1 tab Q6H PRN Administration Pain Rated 7-10 Amlodipine Besylate 10 mg 09/29/20 09:00 10/03/20 09:10 Amlodipine Besylate 5 Mg Tablet PO 10 mg DAILY CANDIDA Administration Cyclobenzaprine HCl 5 mg 09/27/20 18:40 09/28/20 21:40 Cyclobenzaprine Hcl 5 Mg Tablet PO 5 mg Q8H PRN Administration Muscle Spasm Dextrose 12.5 gm 09/29/20 08:30 Dextrose 50% 25 Gm/50 Ml Syringe IV PUSH PRN PRN Hypoglycemia Protocol Epoetin Andreas-epbx 10,000 units 09/29/20 09:00 10/03/20 09:12 Epoetin Andreas-Epbx 10,000 Units/Ml Vial SUB-Q 10,000 units MOWEFR CANDIDA Administration Glucagon 1 mg 0
[2020-10-03 13:03] LABS: Creatinine, Random Urine 62 mg/dL (20-320); Total Protein/Creatinine Ratio 7226 mg/g creat (22-128)
--- NOTE | 2020-10-04 14:59 | PM.DS ---
DS: Admitting Diagnosis Admitting Diagnosis right flank pain DS: Discharge Diagnosis Discharge Diagnosis (1) Anemia: Code(s): D64.9 - Anemia, unspecified Status: Acute Assessment and Plan: GI followed, recommendations appreciated stool for occult blood neg Iron level is low which is 29. TIBC is 320 Hematology following, recommendations appreciated Hemoglobin stable S/p 1 unit of PRBC iron supplement and Epogen initiated per hemonc, will f/u o/p (2) Elevated d-dimer: Code(s): R79.89 - Other specified abnormal findings of blood chemistry Status: Acute Assessment and Plan: V/Q scan with PE Heparin gtt initiated Title I Director following, recommendations appreciated ECHO-->Left ventricular systolic function is normal, estimated at 60-65%; left ventricular diastolic function is abnormal Doppler ultrasound has been found to be negative for DVT Follow labs for antiphospholipid syndrome-->per pulm: Regarding anti phospholipid syndrome work up: LA pending, Anti cardiolipin IgA, IgG and IgM negative and Anti B2 glycoprotein IgA, IgG, and IgM pending. Will sign off, no need for pulmonary follow up, call with questions. CTA showed no PE Hepain gtt d/c'd (3) Hypertension: Qualifiers: Hypertension type: essential hypertension Qualified Code(s): I10 - Essential (primary) hypertension Code(s): I10 - Essential (primary) hypertension Status: Chronic Assessment and Plan: Continue with home medications, amlodipine (4) Lupus: Code(s): M32.9 - Systemic lupus erythematosus, unspecified Status: Chronic Assessment and Plan: He was supposed to see rheumatology as an outpatient, recommend at d/c Follow labs (5) Right upper quadrant pain: Code(s): R10.11 - Right upper quadrant pain Status: Chronic Assessment and Plan: Resolved He had a CT scan w/o contrast today and there was no CT correlation for the patient's symptoms Continue with Vicodin and Flexeril for now V/Q scan noted CT neg GI following, recommendations appreciaed Plan for EGD and colonoscopy outpatient Renal scan neg for infarct (6) Tobacco abuse: Code(s): Z72.0 - Tobacco use Status: Acute Assessment and Plan: Cessation advised (7) CKD (chronic kidney disease) stage 4, GFR 15-29 ml/min: Code(s): N18.4 - Chronic kidney disease, stage 4 (severe) Status: Acute Assessment and Plan: eGFR is only 3-->4-->5-->6 today Nephrology following, recommendations appreciated Followed o/p 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 He reported the flank pain for over 1 year. 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 He did not take any pain medications at home; and reported that coughing, moving and taking deep breaths made the pain worse. He reported that he was scheduled for an colonoscopy approximately [address] Christine, however the patient was not able to complete the test because he was vomiting. Patient was not sure of any recent GI bleed. ED evaluation included/revealed: CT of the abdomen pelvis was read as no CT correlate for the patient's symptoms. Renal ultrasound showed medical renal disease. H&H 6.8 and 21.3 platelets are normal. The patient has blood in his stool which is of chronic constant condition. Protein creatinine ratio is 10.16.
[2020-10-06 14:22] LABS: Hepatitis B Core Ab Total Nonreactive (Nonreactive)
== END 2020-10-03 17:25 | disposition home or self-care (01) | DRG 469 ==
LOC: ANHED 13:49 → ANH2MED 17:58
PROVIDERS: Internal Medicine; Internal Medicine Nephrology; Internal Medicine Pulmonary Disease; Nurse Practitioner; Surgery; Admitting Provider Internal Medicine Critical Care Medicine; Emergency Provider General Practice; PCP Family Medicine; Visit Provider Nurse Practitioner Adult Health
PROC: 0JH63XZ Insertion of Tunneled Vascular Access Device into Chest Subcutaneous Tissue and Fascia, Percutaneous Approach (ICD-10-PCS; CPT 36908; principal; 2020-10-01 13:30)
DX: N17.9 Acute kidney failure, unspecified (principal); D64.9 Anemia, unspecified; N18.4 Chronic kidney disease, stage 4 (severe); I12.9 Hypertensive chronic kidney disease with stage 1 through stage 4 chronic kidney disease, or unspecified chronic kidney disease; M32.9 Systemic lupus erythematosus, unspecified; G25.81 Restless legs syndrome; Z72.0 Tobacco use; I97.638 Postprocedural hematoma of a circulatory system organ or structure following other circulatory system procedure; Y83.8 Other surgical procedures as the cause of abnormal reaction of the patient, or of later complication, without mention of misadventure at the time of the procedure; M06.9 Rheumatoid arthritis, unspecified
CPT/HCPCS: 36415; 36430; 36569; 71046; 71275; 74176; 76775; 77001; 78580; 78707; 80053; 80069; 80074; 81001; 81050; 82248; 82274; 82436; 82550; 82570; 82607; 82728; 82746; 82948; 83010; 83036; 83540; 83550; 83605; 83615; 83690; 83735; 83880; 84155; 84156; 84165; 84166; 84238; 84300; 84443; 84466; 84484; 85025; 85046; 85380; 85597; 85598; 85610; 85613; 85652; 85670; 85730; 85999; 86146; 86147; 86225; 86704; 86706; 86803; 86850; 86880; 86900; 86901; 86920; 87086; 87340; 93005; 93306; 93970; 96374; 96375; 99285; A9270; A9540; A9562; C1750; C1751; C9113; G0257; J0610; J0690; J1170; J1644; J2250; J2270; J2405; J2704; J3010; J7030; J7040; J7050; P9016; Q5106; Q9967

== ENCOUNTER 2020-10-31 07:48 | Emergency (ER) | payer OTHER, SELFPAY ==
--- NOTE | ~2020-10-31 | XR_ITS ---
EXAMINATION: XR chest 1V portable 10/31/2020 08:54 INDICATION: Shortness of breath. Hypertension. History of smoking. PROCEDURE: AP portable chest COMPARISON: Comparison to multiple prior studies sequentially, with oldest reviewed study dated 09/27. FINDINGS: The lungs are clear. The cardiomediastinal silhouette is within normal limits. There are no pleural effusions. There is no pneumothorax suspected. There is a tunneled right internal jugula r dialysis catheter, tip in the SVC. IMPRESSION: 1: NO ACUTE CARDIOPULMONARY DISEASE. Reviewed, dictated and finalized at location A.
--- NOTE | ~2020-10-31 | CT_ITS ---
EXAMINATION: CT abdomen pelvis wo con DATE: 10/31/2020 09:57 INDICATION: Left flank pain TECHNIQUE: Computed tomography (CT) of the abdomen and pelvis was performed without intravenous contr ast. The dose-length product was 240.29 mGy-cm. Automated exposure control and iterative reconstructi on technique were employed. COMPARISON: CT dated 09/28/2019 FINDINGS: Interval resolution of small effusions. Trace pericardial effusion. There is dependent atel ectasis. There is hepatomegaly. There is splenomegaly. The pancreas, adrenal glands and right kidney are unrem arkable. There is a 5 cm left renal cyst containing peripheral calcifications. There is atheroscleros is of the aorta without aneurysm. Nonobstructive bowel gas pattern. The bladder is decompressed. No h ydronephrosis. Gallbladder is present. No free air or free fluid. Mild-moderate lumbar spondylosis. N o acute osseous abnormality.. IMPRESSION: 1. No acute abdominal abnormality. 2: Hepatosplenomegaly. 3: Trace pericardial effusion. Reviewed, dictated and finalized at location A.
[2020-10-31 07:55] VITALS: BP 161/106; PULSE 101; RESP 18; TEMP 37.6; O2SAT 99
--- NOTE | 2020-10-31 08:16 | ED.NAVMDI ---
HPI - Nausea/Vomiting/Diarrhea General Chief complaint: Nausea/Vomiting/Diarrhea Stated complaint: N/V Time Seen by Provider: 10/31/20 08:16 History of Present Illness HPI Narrative: 64 yo male w/ multiple medical problems including ESRD on dialysis presents [facility] ED with multiple complaints. He reports nausea and vomiting for the past 4 days. This is associated with intermittent upper abdominal pain. He also reports pain through out the mid and lower back as well as muscle pain in the extremities. In additiona to Related Data Home Medications Medication Instructions Recorded Confirmed amlodipine 10 mg PO DAILY 09/27/20 Allergies Allergy/AdvReac Type Severity Reaction Status Date / Time No Known Allergies Allergy Verified 10/31/20 08:05 Review of Systems Review of Systems: All systems reviewed & are unremarkable except as noted in HPI and below Constitutional: Constitutional: Reports chills and Reports weakness ENT: Reports dizziness Cardiovascular: Cardiovascular: Reports chest pain Respiratory: Respiratory: Reports chest congestion, Reports cough and Reports dyspnea Gastrointestinal: Gastrointestinal: Reports abdominal pain, Reports nausea and Reports vomiting Genitourinary: Genitourinary: Reports hematuria and Denies dysuria Musculoskeletal: Musculoskeletal: Reports back pain, Reports myalgias and Reports muscle cramps Neurologic: Reports weakness PMFSH Past Medical History Medical History Acute on chronic anemia Acute on chronic renal failure CKD (chronic kidney disease) stage 4, GFR 15-29 ml/min Hypertension Kidney failure Lupus Restless leg syndrome Rheumatoid arthritis Tobacco abuse Surgical History Surgical History H/O right wrist surgery (~1979) History of carpal tunnel release (Unknown) History of facial surgery Hx of cataract extraction Family History Family History Sibling Family history of mental disorder spinal meningitis, brain injury Father Cerebrovascular accident Other Family history of kidney disease Social History Social History Social History: the patient is he lives with his mother and brother. He does not drink any alcohol. He smokes about 2-3 cigarettes a day. He is disabled. Patient desires to be a full code his is the durable power attorney at law for healthcare. Patient has 1 child. Smoking packs per day: 1 Smoking cigarettes per day: 20.0 Years smoked: 50 Smoking pack-years: 50.00 Smoking status: Former smoker Tobacco type: cigarettes Second hand tobacco smoke exposure: Yes Smoking end date: 09/25/20 Alcohol intake: never Substance use: never Substance use type: does not use Gender identity (if verbalized by the patient): Male Spiritual care concerns: No Exam Const: General: healthy appearing, no acute distress and alert Orientation/consciousness: patient oriented x3 HENMT: Head: normal to inspection Face and sinus: normal facial exam Mouth: Yes dry mucous membranes Neck: Neck: normal visual inspection and no lymphadenopathy Chest: Chest palpation & inspection: no tenderness Resp: Effort & Inspection: normal respiratory effort Auscultation: clear to auscultation bilaterally, no rales, no rhonchi and no wheezes Cardio: Jugular venous distension: no JVD Rate: tachycardic Rhythm: regular rhythm Heart sounds: no murmurs GI: Inspection: non-distended GI Palp: Yes Soft to palpation and No Tenderness to palpation present (GI) Skin: General skin exam: normal color Neuro: General: patient oriented x3 and moves all extremities Speech: normal speech Extrem: General: normal to inspection and no edema Psych: Appearance: well kempt Affect: normal affect Course Tash
[2020-10-31 08:36] LABS: Basophils Percent Auto 0.4 % (0.2-1.2); Eosinophils Percent Auto 0.5 % (0-4.4); Hematocrit 25.5 % (42.0-52.0); Hemoglobin 8.2 g/dL (14.0-18.0); Immature Granulocyte Absolute 0.04 K/mm3 (0.00-0.031); Immature Granulocyte Percent A 0.5 % (0-0.5); Lymphocytes Absolute Auto 0.37 K/mm3 (0.9-3.2); Lymphocytes Percent Auto 5.1 % (18.3-44.2); Mean Corpuscular HGB Conc 32.2 g/dl (32-36); Mean Corpuscular Volume 90.1 fl (80-100); Mean Platelet Volume 10.2 fl (7.4-10.4); Monocytes Absolute Auto 0.5 K/mm3 (0.1-0.6); Monocytes Percent Auto 6.3 % (2.6-8.5); Neutrophils Absolute Auto 6.4 K/mm3 (1.3-6.7); Neutrophils Percent Auto 87.2 % (45.5-73.1); Platelet Count Result 134 k/mm3 (150-375); Red Blood Count 2.83 M/mm3 (4.6-6.20); Red Cell Distribution Width 14.3 % (11.5-14.5); White Blood Count 7.3 K/mm3 (4.5-10.0)
[2020-10-31 08:59] LABS: Add Urine Microscopic? YES; Appearance Urine Cloudy (Clear); Bilirubin Urine Negative (Negative); Blood Urine 3+ (Negative); Color Urine Red (Yellow); Glucose Urine UA 1+ mg/dL (Negative); Ketones Urine Negative (Negative); Leukocyte Esterase Ur Trace LEU/UL (Negative); Nitrate Urine Negative (Negative); Protein Urine 3+ mg/dL (Negative); RBC Urine >75 /hpf (0-2); Specific Grav Ur 1.013 (1.001-1.035); Urobilinogen Urine Negative mg/dL (<2.0); WBC Urine 21-30 /hpf
[2020-10-31] MEDS: METOCLOPRAMIDE HCL INJ 10 MG/2 ML VIAL IV PUSH (09:10)
[2020-10-31 09:36] LABS: Alanine Aminotransferase 12 U/L (4-50); Albumin Level 3.3 g/dL (3.5-5.1); Alkaline Phosphatase 70 U/L (38-126); Anion Gap 13 mmol/L (8-16); Aspartate Amino Transferase 22 U/L (17-59); Bilirubin,Total 0.5 mg/dL (0.2-1.3); Blood Urea Nitrogen 77 mg/dL (9-20); Calcium 7.7 mg/dL (8.4-10.2); Carbon Dioxide 21 mmol/L (22-30); Chloride 94 mmol/L (98-107); Estimated CRCL calculation 6 ml/min; Estimated Glomerular Filt Rate 5; Glucose 116 mg/dL (65-110); Lipase 55 U/L (23-300); Potassium 4.7 mmol/L (3.4-5.0); Sodium 128 mmol/L (137-145)
[2020-10-31 11:00] VITALS: BP 113/89; PULSE 96; RESP 14; O2SAT 99
[2020-10-31 12:00] VITALS: BP 117/85; PULSE 81; RESP 12; O2SAT 100
[2020-10-31] MEDS: SODIUM CHLORIDE 0.9% IV 500 ML 999 ML IV CONT (12:42)
[2020-10-31 13:00] VITALS: BP 138/97; PULSE 78; RESP 14; O2SAT 94
[2020-10-31 13:47] VITALS: BP 139/97; PULSE 97; RESP 18; O2SAT 97
[2020-10-31 20:11] LABS: SARS-CoV-2 RNA PCR Negative
== END 2020-10-31 13:50 | disposition home or self-care (01) ==
PROVIDERS: Emergency Provider Emergency Medicine; PCP Family Medicine
DX: R11.2 Nausea with vomiting, unspecified (principal); M79.10 Myalgia, unspecified site; R31.9 Hematuria, unspecified; I12.0 Hypertensive chronic kidney disease with stage 5 chronic kidney disease or end stage renal disease; N18.6 End stage renal disease; M06.9 Rheumatoid arthritis, unspecified; F17.210 Nicotine dependence, cigarettes, uncomplicated; Z99.2 Dependence on renal dialysis
CPT/HCPCS: 36415; 71045; 74176; 80053; 81001; 83690; 85025; 87077; 87086; 87088; 87186; 96361; 96374; 96375; 99284; C9803; J0131; J2765; J7040; U0003; U0005